=== PATIENT | female | born 1945 | race Caucasian/White ===

== ENCOUNTER → 2016-12-31 | Outpatient (CLI) | payer MEDICARE, MEDICAID ==
[~2016-12-31] MED LIST: CARI250T8 OR; CLON0.1T14 OR; FOLIPOW28; HYDR7.5T OR; LISIPOW; PRED5PAK8 OR; PREMARIN; ROSU10TA16 OR; VEN75XRT OR
[2016-12-31 11:06] LABS: Basophils # (auto) 0.1 uL; Basophils % (auto) 0.8 % (0.0-2.0); DEFINITIVE VIEW TRANSMISSION; Eosinophils # (auto) 0.2 uL; Hematocrit 41.6 % (36.0-46.0); Hemoglobin 14.1 g/dL (12.2-16.2); Lymphocytes % (auto) 29.2 % (10.0-50.0); Mean Corpuscular Hemoglobin 34.8 pg (28.0-32.0); Mean Corpuscular Volume 102.6 fL (80.0-100.0); Mean Platelet Volume 7.7 fL (7.4-10.4); Monocytes # (auto) 0.6 uL; Monocytes % (auto) 9.4 % (0.0-12.0); Neutrophils # (auto) 3.9 uL; Neutrophils % (auto) 57.6 % (37.0-80.0); Platelet Count (auto) 262 10^3/uL (140-450); White Blood Cell 6.8 10^3/uL (4.4-10.8)
[2016-12-31 11:39] LABS: Albumin 3.6 g/dL (3.4-5.0); Bilirubin, Total 0.4 mg/dL (0.2-1.0); Potassium 4.6 mmol/L (3.5-5.1); Total Protein 7.9 g/dL (6.4-8.2)
== END | disposition home or self-care (01) ==
LOC: LAB 10:20
DX: M25.50 Pain in unspecified joint (principal); M06.9 Rheumatoid arthritis, unspecified; I10 Essential (primary) hypertension; Z79.899 Other long term (current) drug therapy; D64.9 Anemia, unspecified
CPT/HCPCS: 36415; 80053; 85025; 85652; 86141

== ENCOUNTER 2018-05-25 16:55 | Inpatient (IN) | payer MEDICARE, MEDICAID ==
[~2018-05-25] VITALS: Ht 154.9 cm; Wt 62.4 kg
[~2018-05-25 16:55] MED LIST changes: +CARI250T OR; -CARI250T8 OR; +CATAPRESS; +ESTR1TAB5; +GABA600T; +HYDR7.5T; +OXYCONTIN 40 MG; +PREG225C; +PSEU60TA26; +ROPI0.5T18; +ROSU10TA16; +VENL75TA
[2018-05-25] MEDS ORDERED: SODIUM CHLORIDE 0.9% 1,000 ML IVB ONE (17:57)
[2018-05-25 18:53] LABS: Basophils # (auto) 0.1 uL; Basophils % (auto) 0.8 % (0.0-2.0); Eosinophils # (auto) 0.1 uL; Eosinophils % (auto) 0.6 % (0.0-7.0); Hematocrit 41.7 % (36.0-46.0); Hemoglobin 14.7 g/dL (12.2-16.2); Lymphocytes % (auto) 10.6 % (10.0-50.0); Mean Corpuscular Hemoglobin 33.1 pg (28.0-32.0); Mean Corpuscular Hgb Conc. 35.1 g/dL (32.0-36.0); Mean Corpuscular Volume 94.3 fL (80.0-100.0); Monocytes # (auto) 0.9 uL; Monocytes % (auto) 9.8 % (0.0-12.0); Neutrophils # (auto) 7.1 uL; Neutrophils % (auto) 78.2 % (37.0-80.0); Nucleated Red Blood Cells % 0.1 %; Platelet Count (auto) 227 10^3/uL (140-450); Red Blood Cells 4.42 10^6/uL (4.0-5.20); Red Cell Distribution Width 13.2 % (11.8-14.3); White Blood Cell 9.1 10^3/uL (4.4-10.8)
[2018-05-25 19:09] LABS: Partial Thromboplastin Time 26.1 sec (23.78-33.04); Prothrombin Time 10.7 sec (9.27-12.13)
[2018-05-25 19:16] LABS: Albumin 2.7 g/dL (3.4-5.0); BUN/Creatinine Ratio 12.3; Calcium 7.4 mg/dL (8.5-10.1); Magnesium 1.6 mg/dL (1.6-2.6)
[2018-05-25 19:20] LABS: Bilirubin, Total 0.3 mg/dL (0.2-1.0); Total Protein 6.4 g/dL (6.4-8.2)
[2018-05-25 19:23] LABS: Potassium 2.4 mmol/L (3.5-5.1)
[2018-05-25] MEDS ORDERED: ASPirin-EC 81 mg tab PO ONE (20:00)
[2018-05-25] MEDS ORDERED: POTASSIUM CHL 20 Meq TABLET PO ONE ×2 (20:00)
[2018-05-25] MEDS ORDERED: TEMAZEPAM 15 MG CAP PO PRN (21:00)
[2018-05-25] MEDS ORDERED: POTASSIUM CHL 20MEQ/100ML 100 ML IV ONE (21:00)
[2018-05-25] MEDS ORDERED: LORazepam 0.5 MG TAB PO PRN (21:00)
[2018-05-25 22:38] LABS: Urine Bacteria NONE SEEN /hpf (None Seen); Urine Blood TRACE /uL (Negative); Urine Mucus FEW (None Seen); Urine Specific Gravity 1.005 (1.001-1.035); Urine WBC 1 /hpf (0 - 5)
[2018-05-26] VITALS (8 sets, daily range): BP systolic 105–182; BP diastolic 53–109
[2018-05-26] MEDS ORDERED: SODIUM CHLORIDE 0.9% 1,000 ML IV SCH (00:45)
[2018-05-26] MEDS ORDERED: METOPROLOL TARTRATE 25 MG TAB PO ONE (03:15)
[2018-05-26] MEDS: PROMETHAZINE HCL 25 MG/ML 1ML IV PRN ×2 (03:57→20:38)
[2018-05-26] MEDS: HYDROcodone-ACET 5/325MG TAB PO PRN ×2 (05:40→12:47)
[2018-05-26] MEDS: MORPHINE SULF INJ 2 MG/ML SYRINGE 1ML IV PRN ×2 (06:41→20:38)
[2018-05-26] MEDS ORDERED: MORP15TA PO (08:02)
[2018-05-26] MEDS: METOPROLOL TARTRATE 25 MG TAB PO SCH ×2 (08:45→21:52)
[2018-05-26] MEDS: ASPirin-EC 81 mg tab PO SCH (08:46)
[2018-05-26 09:08] LABS: BUN/Creatinine Ratio 14.5; Calcium 8.1 mg/dL (8.5-10.1)
[2018-05-26 09:11] LABS: Potassium 2.6 mmol/L (3.5-5.1)
[2018-05-26 09:35] LABS: Basophils # (auto) 0.1 uL; Eosinophils # (auto) 0.1 uL; Eosinophils % (auto) 0.7 % (0.0-7.0); Hemoglobin 16.4 g/dL (12.2-16.2); Lymphocytes # (auto) 1.4 uL; Lymphocytes % (auto) 12.7 % (10.0-50.0); Mean Corpuscular Hemoglobin 32.7 pg (28.0-32.0); Mean Corpuscular Volume 93.6 fL (80.0-100.0); Monocytes % (auto) 9.6 % (0.0-12.0); Neutrophils # (auto) 8.3 uL; Nucleated Red Blood Cells % 0.1 %; Platelet Count (auto) 258 10^3/uL (140-450); Red Blood Cells 5.02 10^6/uL (4.0-5.20); White Blood Cell 10.9 10^3/uL (4.4-10.8)
[2018-05-26 09:39] LABS: Cholesterol 250 mg/dL (< 200); HDL Cholesterol 74 mg/dL (40-59); LDL Cholesterol 160 mg/dL (< 100); Triglycerides 111 mg/dL (< 150)
[2018-05-26] MEDS ORDERED: POTASSIUM CHL 20 Meq TABLET PO ONE (10:45)
[2018-05-26] MEDS: SPIRONOLACTONE 25 MG TAB PO SCH (14:02)
[2018-05-26] MEDS ORDERED: MAGNESIUM SULFATE 1GM/100ML 100 ML IV ONE (15:00)
[2018-05-26] MEDS ORDERED: LORazepam 2MG/ML-1ML VIAL IV PRN (17:45)
[2018-05-26] MEDS: MORPHINE SULF 15mg ER tab PO SCH (18:41)
[2018-05-26] MEDS ORDERED: hydrALAZINE HCL 20 MG/ML VL IV ONE (21:45)
[2018-05-26] MEDS: ATORVASTATIN 20 MG TAB PO SCH (21:51)
[2018-05-27] MEDS ORDERED: LABETALOL HCL 5 MG/ML ML 20ML VIAL IV ONE (00:15)
[2018-05-27] MEDS: MORPHINE SULF 15mg ER tab PO SCH ×3 (02:15→11:36)
[2018-05-27] MEDS: PROMETHAZINE HCL 25 MG/ML 1ML IV PRN (03:25)
[2018-05-27] MEDS: MORPHINE SULF INJ 2 MG/ML SYRINGE 1ML IV PRN (03:25)
[2018-05-27 05:00] VITALS: BP 154/99
[2018-05-27 07:11] LABS: Albumin 3.1 g/dL (3.4-5.0); Anion Gap 14 (5-15); Blood Urea Nitrogen 17 mg/dL (7-18); Calcium 8.6 mg/dL (8.5-10.1); Carbon Dioxide 24 mmol/L (21-32); Chloride 94 mmol/L (98-107); Glucose 113 mg/dL (74-106); Magnesium 1.9 mg/dL (1.6-2.6); Sodium 132 mmol/L (136-145)
[2018-05-27 07:13] LABS: Alanine Aminotransferase 15 U/L (13-56); Aspartate Aminotransferase 27 U/L (15-37); GFR African American 84 mL/min; GFR Non-African American 69 mL/min
[2018-05-27 07:15] LABS: Alkaline Phosphatase 103 U/L (45-117); Bilirubin, Total 0.6 mg/dL (0.2-1.0); Total Protein 8.3 g/dL (6.4-8.2)
[2018-05-27 07:20] LABS: Potassium 2.5 mmol/L (3.5-5.1)
[2018-05-27 07:36] LABS: Basophils # (auto) 0.1 uL; Eosinophils # (auto) 0 uL; Lymphocytes # (auto) 1.5 uL; Mean Corpuscular Volume 93.7 fL (80.0-100.0); Monocytes % (auto) 10.6 % (0.0-12.0); Red Cell Distribution Width 13.2 % (11.8-14.3)
[2018-05-27 07:37] LABS: Basophils % (auto) 1.1 % (0.0-2.0); Eosinophils % (auto) 0.4 % (0.0-7.0); Hematocrit 50.7 % (36.0-46.0); Hemoglobin 18.2 g/dL (12.2-16.2); Lymphocytes % (auto) 14.1 % (10.0-50.0); Mean Corpuscular Hemoglobin 33.5 pg (28.0-32.0); Mean Corpuscular Hgb Conc. 35.8 g/dL (32.0-36.0); Monocytes # (auto) 1.1 uL; Neutrophils % (auto) 73.8 % (37.0-80.0); Nucleated Red Blood Cells % 0.2 %; Platelet Count (auto) 307 10^3/uL (140-450); Red Blood Cells 5.41 10^6/uL (4.0-5.20); White Blood Cell 10.9 10^3/uL (4.4-10.8)
[2018-05-27] MEDS ORDERED: POTASSIUM CHL 20 Meq TABLET PO ONE (08:00)
[2018-05-27 08:40] VITALS: BP 152/85
[2018-05-27] MEDS ORDERED: GIVE UN DILUTED IV ONE (09:00)
[2018-05-27] MEDS ORDERED: ADENOSINE IV ONE (09:00)
[2018-05-27] MEDS: SPIRONOLACTONE 25 MG TAB PO SCH (09:47)
[2018-05-27] MEDS: ASPirin-EC 81 mg tab PO SCH (09:47)
[2018-05-27] MEDS: METOPROLOL TARTRATE 25 MG TAB PO SCH ×2 (09:47→22:00)
[2018-05-27] MEDS ORDERED: POTASSIUM CHLORIDE 40 MEQ in SOD CHL 0.45% 1,000 ML IV ONE (11:30)
[2018-05-27] MEDS: POTASSIUM CHL 20MEQ/100ML 100 ML IV SCH ×2 (11:36→15:19)
[2018-05-27] MEDS ORDERED: MAGNESIUM SULFATE 1GM/100ML 100 ML IV ONE (12:15)
[2018-05-27] MEDS ORDERED: POTASSIUM EFFERVESENT TAB 25 MEQ PO SCH (13:00)
[2018-05-27] MEDS ORDERED: HALOPERIDOL LACTATE 5 MG/ML INJ VIAL IM PRN (17:30)
[2018-05-27] MEDS: ATORVASTATIN 20 MG TAB PO SCH (22:00)
[2018-05-27] MEDS ORDERED: diphenhdrAMINE HCL 50 MG/1 ML VL IV ONE (22:25)
[2018-05-28] MEDS: MORPHINE SULF 15mg ER tab PO SCH ×2 (02:09→10:15)
[2018-05-28 07:19] LABS: Calcium 8.8 mg/dL (8.5-10.1); Magnesium 2.3 mg/dL (1.6-2.6)
[2018-05-28 07:22] LABS: BUN/Creatinine Ratio 19.5
[2018-05-28 07:33] LABS: Basophils # (auto) 0 uL; Basophils % (auto) 0.1 % (0.0-2.0); Eosinophils # (auto) 0 uL; Hematocrit 53.2 % (36.0-46.0); Hemoglobin 18.6 g/dL (12.2-16.2); Lymphocytes # (auto) 0.8 uL; Lymphocytes % (auto) 5.2 % (10.0-50.0); Mean Corpuscular Hemoglobin 32.9 pg (28.0-32.0); Mean Corpuscular Hgb Conc. 35.1 g/dL (32.0-36.0); Mean Corpuscular Volume 93.9 fL (80.0-100.0); Monocytes # (auto) 1.3 uL; Monocytes % (auto) 8.5 % (0.0-12.0); Neutrophils # (auto) 13.1 uL; Neutrophils % (auto) 86.2 % (37.0-80.0); Nucleated Red Blood Cells % 0.2 %; Platelet Count (auto) 253 10^3/uL (140-450); Red Blood Cells 5.66 10^6/uL (4.0-5.20); Red Cell Distribution Width 13.5 % (11.8-14.3); White Blood Cell 15.2 10^3/uL (4.4-10.8)
[2018-05-28 07:47] LABS: Potassium 2.9 mmol/L (3.5-5.1)
[2018-05-28] MEDS ORDERED: POTASSIUM CHL 20 Meq TABLET PO ONE (09:00)
[2018-05-28] MEDS ORDERED: POTASSIUM CHL 20MEQ/100ML 100 ML IV ONE ×2 (09:00→12:15)
[2018-05-28] MEDS ORDERED: POTASSIUM CHLORIDE 40 MEQ in SOD CHL 0.45% 1,000 ML IV SCH ×2 (09:15→14:15)
[2018-05-28] MEDS: SPIRONOLACTONE 25 MG TAB PO SCH (10:00)
[2018-05-28] MEDS: ASPirin-EC 81 mg tab PO SCH (10:00)
[2018-05-28] MEDS: METOPROLOL TARTRATE 25 MG TAB PO SCH ×3 (10:00→22:00)
[2018-05-28] MEDS ORDERED: PANTOPRAZOLE 40 MG/10 ML VIAL IV ONE (12:00)
[2018-05-28] MEDS ORDERED: ENOXAPARIN SOD 30 MG/0.3 ML SYRINGE SC ONE (12:09)
[2018-05-28] MEDS: PIPERACILLIN-TAZOB 3.375GM 100 ML IV SCH ×3 (12:24→23:10)
[2018-05-28] MEDS: LABETALOL HCL 5 MG/ML ML 20ML VIAL IV PRN (14:33)
[2018-05-28] MEDS: hydrALAZINE HCL 20 MG/ML VL IV PRN (17:23)
[2018-05-28 17:47] VITALS: BP 129/55
[2018-05-28] MEDS: SOD CHL 0.9%/ KCL 40MEQ 1,000 ML IV SCH (17:57)
[2018-05-28 20:00] VITALS: BP 100/64
[2018-05-28] MEDS: PANTOPRAZOLE 40 MG/10 ML VIAL IV SCH ×2 (21:45→22:00)
[2018-05-28] MEDS: ATORVASTATIN 20 MG TAB PO SCH (21:46)
[2018-05-29] VITALS (26 sets, daily range): BP systolic 121–194; BP diastolic 47–129
[2018-05-29 05:33] LABS: Basophils # (auto) 0.1 uL; Basophils % (auto) 0.4 % (0.0-2.0); Eosinophils # (auto) 0 uL; Lymphocytes # (auto) 0.9 uL; Nucleated Red Blood Cells % 0.3 %
[2018-05-29 05:35] LABS: Hematocrit 50.7 % (36.0-46.0); Lymphocytes % (auto) 4.8 % (10.0-50.0); Mean Corpuscular Hemoglobin 33.2 pg (28.0-32.0); Mean Corpuscular Hgb Conc. 35.5 g/dL (32.0-36.0); Mean Corpuscular Volume 93.6 fL (80.0-100.0); Monocytes % (auto) 10.3 % (0.0-12.0); Neutrophils # (auto) 16.5 uL; Neutrophils % (auto) 84.5 % (37.0-80.0); Platelet Count (auto) 262 10^3/uL (140-450); Red Blood Cells 5.41 10^6/uL (4.0-5.20); Red Cell Distribution Width 13.3 % (11.8-14.3); White Blood Cell 19.6 10^3/uL (4.4-10.8)
[2018-05-29 05:52] LABS: Lactic Acid w/Reflex 2.3 mmol/L (0.4-2.0)
[2018-05-29] MEDS: PIPERACILLIN-TAZOB 3.375GM 100 ML IV SCH ×3 (05:57→18:00)
[2018-05-29 06:21] LABS: Albumin 2.8 g/dL (3.4-5.0); BUN/Creatinine Ratio 23.2; Calcium 8.4 mg/dL (8.5-10.1); Magnesium 2.6 mg/dL (1.6-2.6); Potassium 3.2 mmol/L (3.5-5.1); Total Protein 7.6 g/dL (6.4-8.2)
[2018-05-29] MEDS ORDERED: ADENOSINE 47 MG in GIVE UN-DILUTED 0 ML IV ONE (08:30)
[2018-05-29] MEDS: SPIRONOLACTONE 25 MG TAB PO SCH (09:27)
[2018-05-29] MEDS: ASPirin-EC 81 mg tab PO SCH (09:27)
[2018-05-29] MEDS: METOPROLOL TARTRATE 25 MG TAB PO SCH (09:28)
[2018-05-29] MEDS: ENOXAPARIN SOD 30 MG/0.3 ML SYRINGE SC SCH ×2 (09:28→09:39)
[2018-05-29] MEDS: PANTOPRAZOLE 40 MG/10 ML VIAL IV SCH ×2 (09:38→21:41)
[2018-05-29] MEDS: hydrALAZINE HCL 20 MG/ML VL IV PRN (12:05)
[2018-05-29] MEDS ORDERED: LORazepam 2MG/ML-1ML VIAL IV ONE (14:00)
[2018-05-29] MEDS ORDERED: ENOXAPARIN SOD 30 MG/0.3 ML SYRINGE SC ONE (14:30)
[2018-05-29] MEDS: SOD CHL 0.9%/ KCL 40MEQ 1,000 ML IV SCH ×2 (16:09→20:52)
[2018-05-29] MEDS ORDERED: CLOPIDOGREL BISULFATE 75 MG TAB PO ONE (18:15)
[2018-05-29 19:01] LABS: BUN/Creatinine Ratio 21.9; Calcium 8.6 mg/dL (8.5-10.1); Potassium 4.1 mmol/L (3.5-5.1)
[2018-05-29 19:03] LABS: Creatinine, Urine 76 mg/dL (30.0-125.0); Sodium Urine 19 mmol/L (40-220)
[2018-05-29 19:08] LABS: Alcohol, Urine < 3.0 mg/dL (0-5); Amphetamine Screen, Urine NEGATIVE (NEGATIVE); Barbiturate Scree,Urine NEGATIVE (NEGATIVE); Benzodiazephine Screen, Urine NEGATIVE (NEGATIVE); Cannabinoid Screen, Urine NEGATIVE (NEGATIVE); Cocaine Screen, Urine NEGATIVE (NEGATIVE); Opiate Scree,Urine NEGATIVE (NEGATIVE); Phencyclidine Screen, Urine NEGATIVE (NEGATIVE)
[2018-05-29] MEDS ORDERED: METOPROLOL TARTRATE 1MG/1ML-5ML VIAL IV ONE ×2 (19:20→19:30)
[2018-05-29] MEDS: ACETAMINOPHEN 500 MG TAB PO PRN (19:25)
[2018-05-29] MEDS ORDERED: NICARDIPINE 25MG/250ML BAG KIT 250 ML IV ONE (19:48)
[2018-05-29] MEDS: NICARDIPINE 25MG/250ML BAG KIT 250 ML IV SCH (20:02)
[2018-05-29] MEDS: LINEZOLID 600MG/300ML 300 ML IV SCH (21:41)
[2018-05-29] MEDS: ATORVASTATIN 20 MG TAB PO SCH (21:41)
[2018-05-29] MEDS: MORPHINE SULF INJ 2 MG/ML SYRINGE 1ML IV PRN (21:42)
[2018-05-30] VITALS (95 sets, daily range): BP systolic 117–181; BP diastolic 36–105
[2018-05-30] MEDS: PIPERACILLIN-TAZOB 3.375GM 100 ML IV SCH ×2 (00:01→05:42)
[2018-05-30] MEDS: METOPROLOL TARTRATE 1MG/1ML-5ML VIAL IV SCH ×2 (00:02→05:42)
[2018-05-30] MEDS: D5W/SOD CHL 0.9%/KCL 40MEQ 1,000 ML IV SCH ×2 (01:00→10:17)
[2018-05-30] MEDS: NICARDIPINE 25MG/250ML BAG KIT 250 ML IV SCH ×5 (02:05→20:40)
[2018-05-30] MEDS: MORPHINE SULF INJ 2 MG/ML SYRINGE 1ML IV PRN (04:34)
[2018-05-30 04:55] LABS: Albumin 2.3 g/dL (3.4-5.0); Anion Gap 12 (5-15); Aspartate Aminotransferase 47 U/L (15-37); BUN/Creatinine Ratio 21.8; Blood Urea Nitrogen 56 mg/dL (7-18); Calcium 7.5 mg/dL (8.5-10.1); Carbon Dioxide 21 mmol/L (21-32); Chloride 107 mmol/L (98-107); GFR African American 23 mL/min; GFR Non-African American 19 mL/min; Glucose 132 mg/dL (74-106); Magnesium 2.4 mg/dL (1.6-2.6); Potassium 3.2 mmol/L (3.5-5.1); Sodium 140 mmol/L (136-145)
[2018-05-30 05:04] LABS: Alanine Aminotransferase 20 U/L (13-56); Alkaline Phosphatase 71 U/L (45-117); Bilirubin, Total 0.6 mg/dL (0.2-1.0); Total Protein 6.7 g/dL (6.4-8.2)
[2018-05-30 05:05] LABS: Basophils # (auto) 0 uL; Basophils % (auto) 0.1 % (0.0-2.0); Eosinophils # (auto) 0 uL; Hemoglobin 15.4 g/dL (12.2-16.2); Lymphocytes % (auto) 5.2 % (10.0-50.0); Mean Corpuscular Hgb Conc. 34.2 g/dL (32.0-36.0); Mean Corpuscular Volume 93.8 fL (80.0-100.0); Monocytes # (auto) 1.6 uL; Monocytes % (auto) 8.2 % (0.0-12.0); Neutrophils # (auto) 16.5 uL; Neutrophils % (auto) 86.5 % (37.0-80.0); Nucleated Red Blood Cells % 0.1 %; Platelet Count (auto) 193 10^3/uL (140-450); Red Cell Distribution Width 13.6 % (11.8-14.3); White Blood Cell 19.1 10^3/uL (4.4-10.8)
[2018-05-30] MEDS ORDERED: D5W/SOD CHL 0.45%/KCL 40MEQ 1,000 ML IV SCH (09:15)
[2018-05-30] MEDS: LINEZOLID 600MG/300ML 300 ML IV SCH ×2 (10:17→22:41)
[2018-05-30] MEDS: ENOXAPARIN SOD 60 MG/0.6 ML SYRINGE SC SCH (10:18)
[2018-05-30] MEDS: CLOPIDOGREL BISULFATE 75 MG TAB PO SCH (10:18)
[2018-05-30] MEDS: PANTOPRAZOLE 40 MG/10 ML VIAL IV SCH ×2 (10:42→22:42)
[2018-05-30] MEDS ORDERED: METOPROLOL TARTRATE 1MG/1ML-5ML VIAL IV PRN (11:00)
[2018-05-30] MEDS: METOPROLOL TARTRATE 25 MG TAB PO SCH ×2 (11:15→22:42)
[2018-05-30] MEDS: PIPERACILLIN-TAZOB 2.25GM 50 ML IV SCH ×2 (12:34→17:55)
[2018-05-30 18:00] LABS: BUN/Creatinine Ratio 21.5; Calcium 7.5 mg/dL (8.5-10.1); Potassium 3.2 mmol/L (3.5-5.1)
[2018-05-30] MEDS: ATORVASTATIN 20 MG TAB PO SCH (22:41)
[2018-05-31] VITALS (74 sets, daily range): BP systolic 134–178; BP diastolic 37–106
[2018-05-31] MEDS: NICARDIPINE 25MG/250ML BAG KIT 250 ML IV SCH ×5 (01:40→21:40)
[2018-05-31 04:45] LABS: Basophils # (auto) 0 uL; Basophils % (auto) 0.1 % (0.0-2.0); Eosinophils # (auto) 0 uL; Hematocrit 39.1 % (36.0-46.0); Hemoglobin 13.4 g/dL (12.2-16.2); Lymphocytes # (auto) 0.8 uL; Lymphocytes % (auto) 6.3 % (10.0-50.0); Mean Corpuscular Hemoglobin 32.5 pg (28.0-32.0); Mean Corpuscular Hgb Conc. 34.3 g/dL (32.0-36.0); Mean Corpuscular Volume 94.5 fL (80.0-100.0); Monocytes # (auto) 1.1 uL; Monocytes % (auto) 8.6 % (0.0-12.0); Neutrophils # (auto) 11.3 uL; Platelet Count (auto) 182 10^3/uL (140-450); Red Blood Cells 4.13 10^6/uL (4.0-5.20); Red Cell Distribution Width 13.4 % (11.8-14.3); White Blood Cell 13.3 10^3/uL (4.4-10.8)
[2018-05-31 05:02] LABS: Albumin 2.3 g/dL (3.4-5.0); Bilirubin, Total 0.5 mg/dL (0.2-1.0); Calcium 7.4 mg/dL (8.5-10.1); Total Protein 6.1 g/dL (6.4-8.2)
[2018-05-31 05:28] LABS: Potassium 2.9 mmol/L (3.5-5.1)
[2018-05-31] MEDS: PIPERACILLIN-TAZOB 2.25GM 50 ML IV SCH ×4 (06:00→17:46)
[2018-05-31] MEDS ORDERED: POTASSIUM EFFERVESENT TAB 25 MEQ GT ONE ×2 (07:45→11:45)
[2018-05-31] MEDS: PANTOPRAZOLE 40 MG/10 ML VIAL IV SCH ×2 (09:27→22:47)
[2018-05-31] MEDS: CLOPIDOGREL BISULFATE 75 MG TAB PO SCH (09:27)
[2018-05-31] MEDS: ENOXAPARIN SOD 60 MG/0.6 ML SYRINGE SC SCH (09:28)
[2018-05-31] MEDS: METOPROLOL TARTRATE 25 MG TAB PO SCH ×2 (09:28→22:48)
[2018-05-31] MEDS: LINEZOLID 600MG/300ML 300 ML IV SCH ×2 (09:28→22:47)
[2018-05-31] MEDS: D5W/SOD CHL 0.9%/KCL 40MEQ 1,000 ML IV SCH (13:49)
[2018-05-31] MEDS: ACETAMINOPHEN 500 MG TAB PO PRN ×2 (15:40→22:50)
[2018-05-31] MEDS: LABETALOL HCL 5 MG/ML ML 20ML VIAL IV PRN (21:08)
[2018-05-31] MEDS: ATORVASTATIN 20 MG TAB PO SCH (22:48)
[2018-05-31] MEDS: LISINOPRIL 10 MG TAB PO SCH (22:48)
[2018-06-01] VITALS (68 sets, daily range): BP systolic 94–180; BP diastolic 35–100
[2018-06-01] MEDS: PIPERACILLIN-TAZOB 2.25GM 50 ML IV SCH ×4 (00:14→17:49)
[2018-06-01] MEDS: D5W/SOD CHL 0.9%/KCL 40MEQ 1,000 ML IV SCH ×2 (01:15→17:48)
[2018-06-01] MEDS: hydrALAZINE HCL 20 MG/ML VL IV PRN ×2 (02:25→09:54)
[2018-06-01] MEDS: MORPHINE SULF INJ 2 MG/ML SYRINGE 1ML IV PRN ×3 (02:30→20:41)
[2018-06-01] MEDS: NICARDIPINE 25MG/250ML BAG KIT 250 ML IV SCH ×2 (02:40→07:40)
[2018-06-01 03:48] LABS: Basophils # (auto) 0 uL; Basophils % (auto) 0.2 % (0.0-2.0); Eosinophils # (auto) 0 uL; Eosinophils % (auto) 0.5 % (0.0-7.0); Hematocrit 40.7 % (36.0-46.0); Hemoglobin 14.1 g/dL (12.2-16.2); Lymphocytes # (auto) 1.1 uL; Lymphocytes % (auto) 11.5 % (10.0-50.0); Mean Corpuscular Hemoglobin 32.6 pg (28.0-32.0); Mean Corpuscular Hgb Conc. 34.5 g/dL (32.0-36.0); Mean Corpuscular Volume 94.5 fL (80.0-100.0); Monocytes # (auto) 0.9 uL; Neutrophils # (auto) 7.2 uL; Neutrophils % (auto) 77.8 % (37.0-80.0); Platelet Count (auto) 199 10^3/uL (140-450); Red Blood Cells 4.31 10^6/uL (4.0-5.20); Red Cell Distribution Width 13.5 % (11.8-14.3); White Blood Cell 9.3 10^3/uL (4.4-10.8)
[2018-06-01 04:17] LABS: Albumin 2.3 g/dL (3.4-5.0); BUN/Creatinine Ratio 13.6; Bilirubin, Total 0.4 mg/dL (0.2-1.0); Calcium 7.4 mg/dL (8.5-10.1); Potassium 3.2 mmol/L (3.5-5.1); Total Protein 6.2 g/dL (6.4-8.2)
[2018-06-01] MEDS ORDERED: POTASSIUM EFFERVESENT TAB 25 MEQ GT ONE ×2 (06:00→09:45)
[2018-06-01] MEDS: ENOXAPARIN SOD 60 MG/0.6 ML SYRINGE SC SCH (09:55)
[2018-06-01] MEDS: METOPROLOL TARTRATE 25 MG TAB PO SCH ×2 (09:55→21:33)
[2018-06-01] MEDS: PANTOPRAZOLE 40 MG/10 ML VIAL IV SCH ×2 (09:55→21:33)
[2018-06-01] MEDS: LISINOPRIL 10 MG TAB PO SCH ×2 (09:55→21:34)
[2018-06-01] MEDS: LINEZOLID 600MG/300ML 300 ML IV SCH ×2 (09:55→21:33)
[2018-06-01] MEDS: CLOPIDOGREL BISULFATE 75 MG TAB PO SCH (09:56)
[2018-06-01 16:31] LABS: Calcium 7.3 mg/dL (8.5-10.1)
[2018-06-01] MEDS: ATORVASTATIN 20 MG TAB PO SCH (21:33)
[2018-06-02] VITALS (56 sets, daily range): BP systolic 101–174; BP diastolic 35–110
[2018-06-02] MEDS: PIPERACILLIN-TAZOB 2.25GM 50 ML IV SCH ×4 (00:18→17:49)
[2018-06-02] MEDS: D5W/SOD CHL 0.9%/KCL 40MEQ 1,000 ML IV SCH (04:14)
[2018-06-02 04:20] LABS: Basophils # (auto) 0 uL; Basophils % (auto) 0.2 % (0.0-2.0); Eosinophils # (auto) 0.2 uL; Eosinophils % (auto) 2.5 % (0.0-7.0); Hematocrit 38.7 % (36.0-46.0); Hemoglobin 13.1 g/dL (12.2-16.2); Lymphocytes # (auto) 1.6 uL; Lymphocytes % (auto) 18.1 % (10.0-50.0); Mean Corpuscular Hemoglobin 33.1 pg (28.0-32.0); Mean Corpuscular Hgb Conc. 33.8 g/dL (32.0-36.0); Mean Corpuscular Volume 98.1 fL (80.0-100.0); Monocytes # (auto) 0.9 uL; Monocytes % (auto) 10.3 % (0.0-12.0); Neutrophils # (auto) 6.1 uL; Neutrophils % (auto) 68.9 % (37.0-80.0); Platelet Count (auto) 183 10^3/uL (140-450); Red Blood Cells 3.94 10^6/uL (4.0-5.20); White Blood Cell 8.8 10^3/uL (4.4-10.8)
[2018-06-02 04:47] LABS: Albumin 1.9 g/dL (3.4-5.0); BUN/Creatinine Ratio 11.4; Bilirubin, Total 0.3 mg/dL (0.2-1.0); Calcium 6.7 mg/dL (8.5-10.1); Magnesium 1.5 mg/dL (1.6-2.6); Potassium 4.2 mmol/L (3.5-5.1); Total Protein 5.3 g/dL (6.4-8.2)
[2018-06-02] MEDS: ACETAMINOPHEN 500 MG TAB PO PRN ×2 (08:41→16:28)
[2018-06-02] MEDS ORDERED: FLORASTOR (S. BOULARDII) 250 MG CAP PO ONE (10:34)
[2018-06-02] MEDS: PANTOPRAZOLE 40 MG/10 ML VIAL IV SCH (10:35)
[2018-06-02] MEDS: CLOPIDOGREL BISULFATE 75 MG TAB PO SCH (10:36)
[2018-06-02] MEDS: METOPROLOL TARTRATE 25 MG TAB PO SCH ×2 (10:36→21:46)
[2018-06-02] MEDS: LINEZOLID 600MG/300ML 300 ML IV SCH (10:36)
[2018-06-02] MEDS: ENOXAPARIN SOD 60 MG/0.6 ML SYRINGE SC SCH (10:37)
[2018-06-02] MEDS: LISINOPRIL 20 MG TAB PO SCH ×2 (10:37→21:46)
[2018-06-02] MEDS ORDERED: MAGNESIUM SULFATE 1GM/100ML 100 ML IV ONE (10:45)
[2018-06-02] MEDS: MORPHINE SULF INJ 2 MG/ML SYRINGE 1ML IV PRN (13:19)
[2018-06-02] MEDS: hydrALAZINE HCL 20 MG/ML VL IV PRN (18:06)
[2018-06-02] MEDS: ATORVASTATIN 20 MG TAB PO SCH (21:46)
[2018-06-03] VITALS (7 sets, daily range): BP systolic 130–173; BP diastolic 54–66
[2018-06-03] MEDS: PIPERACILLIN-TAZOB 2.25GM 50 ML IV SCH ×4 (00:31→18:05)
[2018-06-03] MEDS: MORPHINE SULF INJ 2 MG/ML SYRINGE 1ML IV PRN (00:35)
[2018-06-03] MEDS: hydrALAZINE HCL 20 MG/ML VL IV PRN (04:36)
[2018-06-03 06:04] LABS: Calcium 7.8 mg/dL (8.5-10.1); Magnesium 1.5 mg/dL (1.6-2.6); Potassium 4.3 mmol/L (3.5-5.1)
[2018-06-03 06:11] LABS: BUN/Creatinine Ratio 10.1
[2018-06-03] MEDS: PANTOPRAZOLE 40 MG/10 ML VIAL IV SCH (09:44)
[2018-06-03] MEDS: CLOPIDOGREL BISULFATE 75 MG TAB PO SCH (09:44)
[2018-06-03] MEDS: FLORASTOR (S. BOULARDII) 250 MG CAP PO SCH (09:48)
[2018-06-03] MEDS: LISINOPRIL 20 MG TAB PO SCH ×2 (09:48→23:13)
[2018-06-03] MEDS: ENOXAPARIN SOD 60 MG/0.6 ML SYRINGE SC SCH (09:49)
[2018-06-03] MEDS: METOPROLOL TARTRATE 25 MG TAB PO SCH ×2 (09:49→23:14)
[2018-06-03] MEDS: metroNIDAZOLE 500 MG TAB PO SCH ×2 (12:06→18:05)
[2018-06-03] MEDS: MAGNESIUM SULFATE 1GM/100ML 100 ML IV SCH ×2 (12:06→15:22)
[2018-06-03] MEDS: ATORVASTATIN 20 MG TAB PO SCH (23:11)
[2018-06-03] MEDS: SODIUM BICARBONATE 650 MG TAB PO SCH (23:11)
[2018-06-03] MEDS: ACETAMINOPHEN 500 MG TAB PO PRN (23:11)
[2018-06-04] VITALS: BP 129/67
[2018-06-04] MEDS: PIPERACILLIN-TAZOB 2.25GM 50 ML IV SCH ×5 (00:05→23:51)
[2018-06-04] MEDS: metroNIDAZOLE 500 MG TAB PO SCH ×2 (00:05→06:43)
[2018-06-04] MEDS: PROMETHAZINE HCL 25 MG/ML 1ML IV PRN (02:35)
[2018-06-04 04:00] VITALS: BP 153/86
[2018-06-04] MEDS: MORPHINE SULF INJ 2 MG/ML SYRINGE 1ML IV PRN (04:17)
[2018-06-04] MEDS: hydrALAZINE HCL 20 MG/ML VL IV PRN (04:58)
[2018-06-04 07:14] LABS: BUN/Creatinine Ratio 10.4; Calcium 8.4 mg/dL (8.5-10.1); Magnesium 2.5 mg/dL (1.6-2.6); Potassium 3.9 mmol/L (3.5-5.1)
[2018-06-04 08:00] VITALS: BP 107/62
[2018-06-04] MEDS ORDERED: ENOXAPARIN SOD 60 MG/0.6 ML SYRINGE SC SCH (10:00)
[2018-06-04] MEDS: SODIUM BICARBONATE 650 MG TAB PO SCH ×2 (11:23→22:04)
[2018-06-04] MEDS: FLORASTOR (S. BOULARDII) 250 MG CAP PO SCH (11:23)
[2018-06-04] MEDS: PANTOPRAZOLE 40 MG/10 ML VIAL IV SCH (11:23)
[2018-06-04] MEDS: CLOPIDOGREL BISULFATE 75 MG TAB PO SCH (11:28)
[2018-06-04] MEDS: METOPROLOL TARTRATE 25 MG TAB PO SCH ×2 (11:33→22:05)
[2018-06-04] MEDS: LISINOPRIL 20 MG TAB PO SCH ×2 (11:33→22:04)
[2018-06-04 11:49] VITALS: BP 134/56
[2018-06-04 15:30] VITALS: BP 134/93
[2018-06-04] MEDS: ACETAMINOPHEN 500 MG TAB PO PRN (18:04)
[2018-06-04] MEDS: Ensure Enlive Chocolate 8oz Bottle PO SCH (18:04)
[2018-06-04] MEDS: Pro-Stat SF 30ml Vanilla PO SCH (18:04)
[2018-06-04 22:03] VITALS: BP 138/70
[2018-06-04] MEDS: ATORVASTATIN 20 MG TAB PO SCH (22:05)
[2018-06-05] MEDS: ACETAMINOPHEN 500 MG TAB PO PRN (01:59)
[2018-06-05] MEDS: PIPERACILLIN-TAZOB 2.25GM 50 ML IV SCH (05:55)
[2018-06-05 05:59] LABS: Basophils # (auto) 0.1 uL; Basophils % (auto) 0.8 % (0.0-2.0); Eosinophils # (auto) 0.5 uL; Eosinophils % (auto) 5.7 % (0.0-7.0); Hematocrit 43.1 % (36.0-46.0); Hemoglobin 14.7 g/dL (12.2-16.2); Lymphocytes # (auto) 1.9 uL; Lymphocytes % (auto) 21.9 % (10.0-50.0); Mean Corpuscular Hemoglobin 33.2 pg (28.0-32.0); Mean Corpuscular Volume 97.5 fL (80.0-100.0); Monocytes # (auto) 1.1 uL; Monocytes % (auto) 12.2 % (0.0-12.0); Neutrophils # (auto) 5.1 uL; Neutrophils % (auto) 59.4 % (37.0-80.0); Nucleated Red Blood Cells % 0.1 %; Platelet Count (auto) 226 10^3/uL (140-450); Red Blood Cells 4.42 10^6/uL (4.0-5.20); Red Cell Distribution Width 13.5 % (11.8-14.3); White Blood Cell 8.6 10^3/uL (4.4-10.8)
[2018-06-05 06:00] VITALS: BP 140/77
[2018-06-05 06:19] LABS: BUN/Creatinine Ratio 10.4; Magnesium 2.2 mg/dL (1.6-2.6); Potassium 3.9 mmol/L (3.5-5.1)
[2018-06-05] MEDS: Pro-Stat SF 30ml Vanilla PO SCH ×2 (08:00→18:00)
[2018-06-05] MEDS: Ensure Enlive Chocolate 8oz Bottle PO SCH ×2 (08:35→18:00)
[2018-06-05] MEDS: METOPROLOL TARTRATE 25 MG TAB PO SCH (09:52)
[2018-06-05] MEDS: SODIUM BICARBONATE 650 MG TAB PO SCH (09:52)
[2018-06-05] MEDS: FLORASTOR (S. BOULARDII) 250 MG CAP PO SCH (09:52)
[2018-06-05] MEDS: PANTOPRAZOLE 40 MG/10 ML VIAL IV SCH (09:52)
[2018-06-05] MEDS: LISINOPRIL 20 MG TAB PO SCH (09:53)
[2018-06-05] MEDS: CLOPIDOGREL BISULFATE 75 MG TAB PO SCH (09:53)
[2018-06-05] MEDS ORDERED: ENOXAPARIN SOD 30 MG/0.3 ML SYRINGE SC SCH (10:00)
[2018-06-05] MEDS ORDERED: LISI-646 PO (13:04)
[2018-06-05] MEDS ORDERED: CLOP75TA28 PO (13:04)
[2018-06-05] MEDS ORDERED: ATOR20TA50 PO (13:04)
[2018-06-05] MEDS ORDERED: MET25T PO (13:04)
[2018-06-06] MEDS ORDERED: PANTOPRAZOLE 40 MG TAB PO SCH (10:00)
== END 2018-06-05 19:15 | DRG 190 ==
LOC: EDUNIT# 16:55 → EDBD 16:55 → ER 17:05 → TELE 17:06 → TELE-WESTW 05-26 02:17 → DOU IN ICU 05-28 18:02 → ICU WEST 05-29 14:41 → DOU IN ICU 06-02 22:36 → TELE-WESTW 06-04 15:32
PROVIDERS: ADMIT Nurse Practitioner Family; ATTEND Internal Medicine
DX: I21.A1 Myocardial infarction type 2 (principal); I63.30 Cerebral infarction due to thrombosis of unspecified cerebral artery; J69.0 Pneumonitis due to inhalation of food and vomit; N17.0 Acute kidney failure with tubular necrosis; A41.9 Sepsis, unspecified organism; G93.41 Metabolic encephalopathy; E87.0 Hyperosmolality and hypernatremia; D64.9 Anemia, unspecified; S00.83XA Contusion of other part of head, initial encounter; G62.9 Polyneuropathy, unspecified; E44.1 Mild protein-calorie malnutrition; J44.9 Chronic obstructive pulmonary disease, unspecified; E87.6 Hypokalemia; K57.30 Diverticulosis of large intestine without perforation or abscess without bleeding; I25.10 Atherosclerotic heart disease of native coronary artery without angina pectoris; N18.9 Chronic kidney disease, unspecified; I12.9 Hypertensive chronic kidney disease with stage 1 through stage 4 chronic kidney disease, or unspecified chronic kidney disease; E78.5 Hyperlipidemia, unspecified; F41.9 Anxiety disorder, unspecified; M19.90 Unspecified osteoarthritis, unspecified site; F32.9 Major depressive disorder, single episode, unspecified; I95.1 Orthostatic hypotension; I65.29 Occlusion and stenosis of unspecified carotid artery; F17.210 Nicotine dependence, cigarettes, uncomplicated; G81.94 Hemiplegia, unspecified affecting left nondominant side; G89.29 Other chronic pain; I65.21 Occlusion and stenosis of right carotid artery; I67.2 Cerebral atherosclerosis; I73.9 Peripheral vascular disease, unspecified; K42.9 Umbilical hernia without obstruction or gangrene; R29.6 Repeated falls; W19.XXXA Unspecified fall, initial encounter; Y92.009 Unspecified place in unspecified non-institutional (private) residence as the place of occurrence of the external cause; Z79.82 Long term (current) use of aspirin; Z79.899 Other long term (current) drug therapy; Z80.0 Family history of malignant neoplasm of digestive organs; Z90.710 Acquired absence of both cervix and uterus; Z95.5 Presence of coronary angioplasty implant and graft; Z88.6 Allergy status to analgesic agent; Z88.2 Allergy status to sulfonamides; Z68.26 Body mass index [BMI] 26.0-26.9, adult
CPT/HCPCS: 36415; 36600; 70450; 70551; 71045; 71250; 74176; 80048; 80053; 80061; 80307; 81001; 82088; 82570; 82805; 82962; 83605; 83735; 83880; 84132; 84244; 84300; 84484; 85025; 85610; 85730; 87040; 87081; 87086; 87493; 92610; 93005; 93306; 93886; 94761; 96361; 96365; 96366; 97110; 97530; A6257; C9113; J0153; J2543; J3480

== ENCOUNTER 2020-11-24 15:00 | Inpatient (IN) | payer MEDICARE, MEDICAID ==
[~2020-11-24] VITALS: Ht 144.8 cm; Wt 71.1 kg
[~2020-11-24 15:00] MED LIST changes: +ATOR20TA50 PO; -CARI250T OR; -CATAPRESS; -CLON0.1T14 OR; +CLOP75TA28 PO; -ESTR1TAB5; -FOLIPOW28; -GABA600T; -HYDR7.5T; -HYDR7.5T OR; +LISI20TA28 PO; -LISIPOW; +MET25T PO; +MORP15TA PO; -OXYCONTIN 40 MG; -PRED5PAK8 OR; -PREMARIN; -PSEU60TA26; -ROPI0.5T18; -ROSU10TA16; -ROSU10TA16 OR; -VEN75XRT OR; +VENL75CA3 OR; -VENL75TA
[2020-11-24] MEDS ORDERED: SODIUM CHLORIDE 0.9% 500 ML IV ONE (15:15)
[2020-11-24 16:44] LABS: Urine Bacteria NONE SEEN /hpf (None Seen); Urine Blood TRACE /uL (Negative); Urine Hyaline Cast FEW /lpf (0 - 2); Urine Specific Gravity 1.015 (1.001-1.035); Urine WBC 2 /hpf (0 - 5)
[2020-11-24 17:01] LABS: Basophils # (auto) 0.1 10 ^3/uL (0-0.2); Basophils % (auto) 0.6 % (0.0-2.0); Eosinophils # (auto) 0 10 ^3/uL (0-0.8); Eosinophils % (auto) 0.2 % (0.0-7.0); Hematocrit 38.7 % (36.0-46.0); Hemoglobin 13.2 g/dL (12.2-16.2); Lymphocytes # (auto) 0.6 10 ^3/uL (0.4-5.4); Lymphocytes % (auto) 6.2 % (10.0-50.0); Mean Corpuscular Hemoglobin 31.4 pg (28.0-32.0); Mean Corpuscular Hgb Conc. 34.1 g/dL (32.0-36.0); Monocytes # (auto) 0.6 10 ^3/uL (0-1.3); Monocytes % (auto) 6.2 % (0.0-12.0); Neutrophils # (auto) 8.2 10 ^3/uL (1.6-8.6); Neutrophils % (auto) 86.8 % (37.0-80.0); Red Cell Distribution Width 13.7 % (11.8-14.3); White Blood Cell 9.4 10^3/uL (4.4-10.8)
[2020-11-24] MEDS ORDERED: DOCUSATE SOD 100 MG CAP PO PRN (17:15)
[2020-11-24] MEDS ORDERED: MORPHINE SULFATE INJECTION 2 MG/ML SYRG IV PRN (17:15)
[2020-11-24] MEDS ORDERED: NITROGLYCERIN 0.4 MG SL TAB SL PRN (17:15)
[2020-11-24 17:18] LABS: Calcium 8.5 mg/dL (8.5-10.1); Magnesium 1.7 mg/dL (1.6-2.6); Potassium 3.4 mmol/L (3.5-5.1)
[2020-11-24 17:25] LABS: BUN/Creatinine Ratio 10.3; Bilirubin, Total 0.5 mg/dL (0.2-1.0); Total Protein 7.5 g/dL (6.4-8.2)
[2020-11-24] MEDS: MORPHINE SULFATE 4 MG/ML SYR/VIAL IV PRN (20:15)
[2020-11-24] MEDS: ONDANSETRON HCL 4 MG/2 ML VIAL IV PRN (20:15)
[2020-11-24] MEDS: FAMOTIDINE 20 MG TAB PO SCH (22:00)
[2020-11-24] MEDS: METOPROLOL TARTRATE 25 MG TAB PO SCH (22:00)
[2020-11-24] MEDS: LISINOPRIL 20 MG TAB PO SCH (22:00)
[2020-11-24] MEDS: ATORVASTATIN 20 MG TAB PO SCH (22:40)
[2020-11-24 22:46] VITALS: BP 160/50
[2020-11-24] MEDS: HYDROcodone-ACET 5/325MG TAB PO PRN (23:00)
[2020-11-25] VITALS (7 sets, daily range): BP systolic 131–176; BP diastolic 55–84
[2020-11-25] MEDS: ONDANSETRON HCL 4 MG/2 ML VIAL IV PRN ×2 (02:24→07:37)
[2020-11-25 03:40] LABS: Cholesterol 129 mg/dL (< 200); HDL Cholesterol 60 mg/dL (40-59); LDL Cholesterol 59 mg/dL (< 100); Triglycerides 82 mg/dL (< 150)
[2020-11-25] MEDS: VENLAFAXINE HCL 37.5mg XR cap PO SCH (05:38)
[2020-11-25 07:20] LABS: Basophils # (auto) 0.1 10 ^3/uL (0-0.2); Basophils % (auto) 1.2 % (0.0-2.0); Eosinophils # (auto) 0.2 10 ^3/uL (0-0.8); Eosinophils % (auto) 3.7 % (0.0-7.0); Hematocrit 35.4 % (36.0-46.0); Hemoglobin 12.1 g/dL (12.2-16.2); Mean Corpuscular Hemoglobin 31.2 pg (28.0-32.0); Mean Corpuscular Hgb Conc. 34.1 g/dL (32.0-36.0); Mean Corpuscular Volume 91.6 fL (80.0-100.0); Monocytes # (auto) 0.7 10 ^3/uL (0-1.3); Neutrophils # (auto) 3.5 10 ^3/uL (1.6-8.6); Neutrophils % (auto) 64.1 % (37.0-80.0); Nucleated Red Blood Cells % 0.1 %; Red Blood Cells 3.86 10^6/uL (4.0-5.20); Red Cell Distribution Width 13.4 % (11.8-14.3); White Blood Cell 5.5 10^3/uL (4.4-10.8)
[2020-11-25 07:43] LABS: Albumin 2.8 g/dL (3.4-5.0); Calcium 8.6 mg/dL (8.5-10.1); Potassium 3.3 mmol/L (3.5-5.1)
[2020-11-25 07:45] LABS: BUN/Creatinine Ratio 6.2
[2020-11-25 07:56] LABS: Bilirubin, Total 0.4 mg/dL (0.2-1.0); Total Protein 6.7 g/dL (6.4-8.2)
[2020-11-25] MEDS: LISINOPRIL 20 MG TAB PO SCH ×2 (09:58→21:07)
[2020-11-25] MEDS: METOPROLOL TARTRATE 25 MG TAB PO SCH ×2 (09:58→21:06)
[2020-11-25] MEDS: HYDROcodone-ACET 5/325MG TAB PO PRN ×2 (09:58→21:08)
[2020-11-25] MEDS: CLOPIDOGREL BISULFATE 75 MG TAB PO SCH (09:58)
[2020-11-25] MEDS ORDERED: ALUM & MAG HYDROX-SIMETH LIQ(MAALOX) 30 ML PO PRN (11:15)
[2020-11-25] MEDS: LABETALOL HCL 200 MG TAB PO PRN (17:08)
[2020-11-25] MEDS: ATORVASTATIN 20 MG TAB PO SCH (21:05)
[2020-11-25] MEDS: FAMOTIDINE 20 MG TAB PO SCH (21:07)
[2020-11-26 04:56] VITALS: BP 162/75
[2020-11-26] MEDS: VENLAFAXINE HCL 37.5mg XR cap PO SCH (05:32)
[2020-11-26] MEDS: METOPROLOL TARTRATE 25 MG TAB PO SCH ×2 (09:56→21:36)
[2020-11-26] MEDS: MORPHINE SULFATE 4 MG/ML SYR/VIAL IV PRN (09:57)
[2020-11-26] MEDS: CLOPIDOGREL BISULFATE 75 MG TAB PO SCH (09:57)
[2020-11-26] MEDS: LISINOPRIL 20 MG TAB PO SCH ×2 (09:57→21:37)
[2020-11-26 17:00] VITALS: BP 164/67
[2020-11-26] MEDS: LABETALOL HCL 200 MG TAB PO PRN (17:35)
[2020-11-26] MEDS: ATORVASTATIN 20 MG TAB PO SCH (21:36)
[2020-11-26] MEDS: FAMOTIDINE 20 MG TAB PO SCH (21:37)
[2020-11-26] MEDS: HYDROcodone-ACET 5/325MG TAB PO PRN (21:38)
[2020-11-26 22:00] VITALS: BP 145/52
[2020-11-27 05:00] VITALS: BP 120/50
[2020-11-27] MEDS: VENLAFAXINE HCL 37.5mg XR cap PO SCH (05:28)
[2020-11-27] MEDS ORDERED: ADENOSINE 58 MG in GIVE UN-DILUTED 0 ML IV STA (08:24)
[2020-11-27 09:00] VITALS: BP 98/53
[2020-11-27] MEDS: LISINOPRIL 20 MG TAB PO SCH ×2 (10:00→21:30)
[2020-11-27] MEDS: METOPROLOL TARTRATE 25 MG TAB PO SCH ×2 (10:00→21:29)
[2020-11-27] MEDS: CLOPIDOGREL BISULFATE 75 MG TAB PO SCH ×2 (10:00→18:45)
[2020-11-27 11:09] LABS: Basophils # (auto) 0.1 10 ^3/uL (0-0.2); Basophils % (auto) 1.3 % (0.0-2.0); Eosinophils # (auto) 0.2 10 ^3/uL (0-0.8); Eosinophils % (auto) 2.7 % (0.0-7.0); Hematocrit 38.1 % (36.0-46.0); Hemoglobin 12.7 g/dL (12.2-16.2); Lymphocytes # (auto) 0.7 10 ^3/uL (0.4-5.4); Lymphocytes % (auto) 7.9 % (10.0-50.0); Mean Corpuscular Hgb Conc. 33.4 g/dL (32.0-36.0); Mean Corpuscular Volume 92.7 fL (80.0-100.0); Monocytes # (auto) 0.8 10 ^3/uL (0-1.3); Monocytes % (auto) 9.1 % (0.0-12.0); Neutrophils # (auto) 6.8 10 ^3/uL (1.6-8.6); Red Blood Cells 4.11 10^6/uL (4.0-5.20); Red Cell Distribution Width 13.7 % (11.8-14.3); White Blood Cell 8.6 10^3/uL (4.4-10.8)
[2020-11-27 11:27] LABS: Albumin 2.9 g/dL (3.4-5.0); Calcium 8.7 mg/dL (8.5-10.1); Magnesium 1.8 mg/dL (1.6-2.6); Potassium 3.4 mmol/L (3.5-5.1)
[2020-11-27 11:31] LABS: BUN/Creatinine Ratio 6.3; Bilirubin, Total 0.5 mg/dL (0.2-1.0); Total Protein 7.2 g/dL (6.4-8.2)
[2020-11-27 13:00] VITALS: BP 102/67
[2020-11-27 17:00] VITALS: BP 150/68
[2020-11-27] MEDS: HYDROcodone-ACET 5/325MG TAB PO PRN (18:46)
[2020-11-27] MEDS: ATORVASTATIN 20 MG TAB PO SCH (21:29)
[2020-11-27] MEDS: FAMOTIDINE 20 MG TAB PO SCH (21:29)
[2020-11-27 22:00] VITALS: BP_SYST 150; BP_SYST 152; BP_DIAS 69; BP_DIAS 73
[2020-11-28 05:00] VITALS: BP 156/83
[2020-11-28] MEDS: VENLAFAXINE HCL 37.5mg XR cap PO SCH (05:49)
[2020-11-28] MEDS: HYDROcodone-ACET 5/325MG TAB PO PRN ×2 (05:50→17:50)
[2020-11-28 08:51] VITALS: BP 145/99
[2020-11-28 09:49] VITALS: BP 146/53
[2020-11-28] MEDS: LISINOPRIL 20 MG TAB PO SCH ×2 (10:00→23:00)
[2020-11-28] MEDS: CLOPIDOGREL BISULFATE 75 MG TAB PO SCH (10:00)
[2020-11-28 11:32] LABS: Albumin 2.8 g/dL (3.4-5.0); Calcium 8.3 mg/dL (8.5-10.1); Magnesium 1.7 mg/dL (1.6-2.6); Potassium 3.4 mmol/L (3.5-5.1)
[2020-11-28 11:35] LABS: BUN/Creatinine Ratio 5.9; Bilirubin, Total 0.5 mg/dL (0.2-1.0); Phosphorus 2.3 mg/dL (2.5-4.90); Total Protein 6.9 g/dL (6.4-8.2)
[2020-11-28] MEDS: METOPROLOL TARTRATE 25 MG TAB PO SCH (12:38)
[2020-11-28 12:54] VITALS: BP 117/70
[2020-11-28] MEDS ORDERED: AZITHROMYCIN 500MG/ 250ML 250 ML IV SCH (13:45)
[2020-11-28 16:35] VITALS: BP 108/68
[2020-11-28 22:00] VITALS: BP 164/70
[2020-11-28] MEDS: ATORVASTATIN 20 MG TAB PO SCH (22:00)
[2020-11-28] MEDS: FAMOTIDINE 20 MG TAB PO SCH (23:00)
[2020-11-29] MEDS: LABETALOL HCL 200 MG TAB PO PRN (00:34)
[2020-11-29] MEDS: MORPHINE SULFATE 4 MG/ML SYR/VIAL IV PRN ×2 (00:35→23:30)
[2020-11-29] MEDS: ONDANSETRON HCL 4 MG/2 ML VIAL IV PRN ×2 (00:36→23:31)
[2020-11-29 05:00] VITALS: BP 96/53
[2020-11-29] MEDS: VENLAFAXINE HCL 37.5mg XR cap PO SCH (06:14)
[2020-11-29 08:00] VITALS: BP 114/54
[2020-11-29] MEDS ORDERED: CHOLECALCIFEROL (VITD3) 1,000UNIT=25mCg TAB PO SCH (10:00)
[2020-11-29] MEDS ORDERED: ASCORBIC ACID 500 MG TAB PO SCH (10:00)
[2020-11-29] MEDS ORDERED: ZINC SULFATE 220mg CAP or TAB PO SCH (10:00)
[2020-11-29] MEDS: CLOPIDOGREL BISULFATE 75 MG TAB PO SCH (10:14)
[2020-11-29] MEDS: LISINOPRIL 20 MG TAB PO SCH ×2 (10:15→22:56)
[2020-11-29 12:00] VITALS: BP 112/73
[2020-11-29 16:00] VITALS: BP 157/56
[2020-11-29] MEDS: AZITHROMYCIN 500MG/ 250ML 250 ML IV SCH (17:40)
[2020-11-29] MEDS: SODIUM CHLORIDE 0.9% 1,000 ML IV SCH (17:40)
[2020-11-29] MEDS: Ensure HIGH Protein Chocolate 8oz Bottle PO SCH (17:40)
[2020-11-29 18:52] LABS: Urine Bacteria FEW /hpf (None Seen); Urine Blood Negative /uL (Negative); Urine Mucus FEW (None Seen); Urine Specific Gravity 1.022 (1.001-1.035); Urine WBC 6 /hpf (0 - 5)
[2020-11-29] MEDS: ACETAMINOPHEN 325 MG TAB PO PRN (18:53)
[2020-11-29] MEDS: HYDROcodone-ACET 5/325MG TAB PO PRN (20:22)
[2020-11-29 22:00] VITALS: BP 153/71
[2020-11-29] MEDS: FAMOTIDINE 20 MG TAB PO SCH (22:55)
[2020-11-29] MEDS: ATORVASTATIN 20 MG TAB PO SCH (22:56)
[2020-11-30 05:00] VITALS: BP 167/72
[2020-11-30] MEDS: SODIUM CHLORIDE 0.9% 1,000 ML IV SCH ×2 (06:09→21:10)
[2020-11-30] MEDS: VENLAFAXINE HCL 37.5mg XR cap PO SCH (06:09)
[2020-11-30 07:37] LABS: Basophils # (auto) 0.1 10 ^3/uL (0-0.2); Basophils % (auto) 1.4 % (0.0-2.0); Eosinophils # (auto) 0.3 10 ^3/uL (0-0.8); Eosinophils % (auto) 5.6 % (0.0-7.0); Hematocrit 34.9 % (36.0-46.0); Hemoglobin 11.8 g/dL (12.2-16.2); Lymphocytes # (auto) 0.9 10 ^3/uL (0.4-5.4); Lymphocytes % (auto) 14.9 % (10.0-50.0); Mean Corpuscular Hemoglobin 30.6 pg (28.0-32.0); Mean Corpuscular Hgb Conc. 33.8 g/dL (32.0-36.0); Mean Corpuscular Volume 90.6 fL (80.0-100.0); Monocytes # (auto) 0.8 10 ^3/uL (0-1.3); Monocytes % (auto) 13.1 % (0.0-12.0); Neutrophils # (auto) 3.8 10 ^3/uL (1.6-8.6); Nucleated Red Blood Cells % 0.1 %; Red Blood Cells 3.85 10^6/uL (4.0-5.20); Red Cell Distribution Width 13.3 % (11.8-14.3); White Blood Cell 5.8 10^3/uL (4.4-10.8)
[2020-11-30 07:55] LABS: Albumin 2.6 g/dL (3.4-5.0); Calcium 7.9 mg/dL (8.5-10.1); Potassium 3.1 mmol/L (3.5-5.1)
[2020-11-30 08:00] VITALS: BP 117/46
[2020-11-30] MEDS: Ensure HIGH Protein Chocolate 8oz Bottle PO SCH ×3 (08:00→18:09)
[2020-11-30 08:05] LABS: BUN/Creatinine Ratio 12.1; Bilirubin, Total 0.4 mg/dL (0.2-1.0); CRP High Sensitivity 4.53 mg/dL (< 0.3); Magnesium 1.5 mg/dL (1.6-2.6); Total Protein 6.3 g/dL (6.4-8.2)
[2020-11-30] MEDS: MORPHINE SULFATE 4 MG/ML SYR/VIAL IV PRN ×3 (09:22→21:24)
[2020-11-30] MEDS: AZITHROMYCIN 500MG/ 250ML 250 ML IV SCH (09:22)
[2020-11-30] MEDS: CLOPIDOGREL BISULFATE 75 MG TAB PO SCH (10:28)
[2020-11-30] MEDS: LISINOPRIL 20 MG TAB PO SCH ×2 (10:28→21:18)
[2020-11-30] MEDS: CHOLECALCIFEROL (VITD3) 2,000 UNIT CAP/TAB PO SCH (10:28)
[2020-11-30] MEDS: ZINC SULFATE 220mg CAP or TAB PO SCH (10:29)
[2020-11-30] MEDS: ASCORBIC ACID 500 MG TAB PO SCH (10:29)
[2020-11-30] MEDS ORDERED: POTASSIUM PHOSPHATE 44 MEQ in D5W 5% 250 ML IV ONE (13:00)
[2020-11-30] MEDS: MAGNESIUM SULFATE 1GM/100ML 100 ML IV SCH ×2 (13:00→15:24)
[2020-11-30 17:14] VITALS: BP 135/58
[2020-11-30] MEDS: ATORVASTATIN 20 MG TAB PO SCH (21:11)
[2020-11-30] MEDS: FAMOTIDINE 20 MG TAB PO SCH (21:17)
[2020-11-30 22:14] VITALS: BP 152/64
[2020-12-01] MEDS: MORPHINE SULFATE 4 MG/ML SYR/VIAL IV PRN ×4 (03:14→18:24)
[2020-12-01 05:00] VITALS: BP 151/106
[2020-12-01] MEDS: VENLAFAXINE HCL 37.5mg XR cap PO SCH (06:30)
[2020-12-01] MEDS ORDERED: SODIUM CHLORIDE 0.9% 1,000 ML IV SCH (07:45)
[2020-12-01] MEDS ORDERED: hydrALAZINE HCL 20 MG/ML VL IV PRN (07:45)
[2020-12-01] MEDS: Ensure HIGH Protein Chocolate 8oz Bottle PO SCH ×3 (08:00→18:00)
[2020-12-01 08:44] VITALS: BP 134/72
[2020-12-01 09:07] LABS: Albumin 2.6 g/dL (3.4-5.0); Calcium 8.5 mg/dL (8.5-10.1); Magnesium 2.2 mg/dL (1.6-2.6); Potassium 3.7 mmol/L (3.5-5.1)
[2020-12-01 09:18] LABS: BUN/Creatinine Ratio 6.7; Bilirubin, Total 0.4 mg/dL (0.2-1.0); CRP High Sensitivity 5.51 mg/dL (< 0.3); Phosphorus 3.3 mg/dL (2.5-4.90); Total Protein 6.5 g/dL (6.4-8.2)
[2020-12-01] MEDS: AZITHROMYCIN 500MG/ 250ML 250 ML IV SCH (10:07)
[2020-12-01] MEDS: CLOPIDOGREL BISULFATE 75 MG TAB PO SCH (10:09)
[2020-12-01] MEDS: CHOLECALCIFEROL (VITD3) 2,000 UNIT CAP/TAB PO SCH (10:09)
[2020-12-01] MEDS: ZINC SULFATE 220mg CAP or TAB PO SCH (10:09)
[2020-12-01] MEDS: ASCORBIC ACID 500 MG TAB PO SCH (10:09)
[2020-12-01] MEDS: LISINOPRIL 20 MG TAB PO SCH ×2 (10:09→22:21)
[2020-12-01 13:31] VITALS: BP 147/67
[2020-12-01 16:13] VITALS: BP 150/70
[2020-12-01 22:00] VITALS: BP 137/61
[2020-12-01] MEDS: ATORVASTATIN 20 MG TAB PO SCH (22:20)
[2020-12-01] MEDS: FAMOTIDINE 20 MG TAB PO SCH (22:20)
[2020-12-02] MEDS: MORPHINE SULFATE 4 MG/ML SYR/VIAL IV PRN ×3 (03:27→18:46)
[2020-12-02 05:00] VITALS: BP 169/84
[2020-12-02 06:15] LABS: Basophils # (auto) 0.1 10 ^3/uL (0-0.2); Eosinophils # (auto) 0.2 10 ^3/uL (0-0.8); Eosinophils % (auto) 2.4 % (0.0-7.0); Hematocrit 38.6 % (36.0-46.0); Hemoglobin 13.2 g/dL (12.2-16.2); Lymphocytes # (auto) 0.7 10 ^3/uL (0.4-5.4); Lymphocytes % (auto) 9.2 % (10.0-50.0); Mean Corpuscular Hemoglobin 31.2 pg (28.0-32.0); Mean Corpuscular Hgb Conc. 34.1 g/dL (32.0-36.0); Mean Corpuscular Volume 91.5 fL (80.0-100.0); Monocytes # (auto) 1.1 10 ^3/uL (0-1.3); Monocytes % (auto) 15.1 % (0.0-12.0); Neutrophils # (auto) 5.5 10 ^3/uL (1.6-8.6); Neutrophils % (auto) 72.3 % (37.0-80.0); Red Blood Cells 4.21 10^6/uL (4.0-5.20); Red Cell Distribution Width 13.8 % (11.8-14.3); White Blood Cell 7.6 10^3/uL (4.4-10.8)
[2020-12-02 06:32] LABS: Albumin 2.6 g/dL (3.4-5.0); Calcium 8.8 mg/dL (8.5-10.1); Magnesium 1.9 mg/dL (1.6-2.6)
[2020-12-02 06:41] LABS: BUN/Creatinine Ratio 8.6; Bilirubin, Total 0.4 mg/dL (0.2-1.0); CRP High Sensitivity 10.5 mg/dL (< 0.3); Total Protein 6.9 g/dL (6.4-8.2)
[2020-12-02] MEDS: VENLAFAXINE HCL 37.5mg XR cap PO SCH (07:37)
[2020-12-02 08:00] VITALS: BP 137/61
[2020-12-02] MEDS: Ensure HIGH Protein Chocolate 8oz Bottle PO SCH ×3 (08:00→18:00)
[2020-12-02 09:13] VITALS: BP 150/84
[2020-12-02] MEDS: ASCORBIC ACID 500 MG TAB PO SCH (09:28)
[2020-12-02] MEDS: ZINC SULFATE 220mg CAP or TAB PO SCH (09:28)
[2020-12-02] MEDS: AZITHROMYCIN 500MG/ 250ML 250 ML IV SCH (09:28)
[2020-12-02] MEDS: CLOPIDOGREL BISULFATE 75 MG TAB PO SCH (09:28)
[2020-12-02] MEDS: CHOLECALCIFEROL (VITD3) 2,000 UNIT CAP/TAB PO SCH (09:29)
[2020-12-02] MEDS: LISINOPRIL 20 MG TAB PO SCH ×2 (09:30→22:19)
[2020-12-02 12:44] VITALS: BP 114/89
[2020-12-02] MEDS ORDERED: METOPROLOL TARTRATE 1MG/1ML-5ML VIAL IV ONE (14:30)
[2020-12-02] MEDS ORDERED: CARISOPRODOL 350 MG TAB PO PRN (15:00)
[2020-12-02 17:00] VITALS: BP 126/91
[2020-12-02] MEDS: FAMOTIDINE 20 MG TAB PO SCH (22:18)
[2020-12-02] MEDS: PIPERACILLIN-TAZOB 3.375GM 100 ML IV SCH (22:18)
[2020-12-02] MEDS: ATORVASTATIN 20 MG TAB PO SCH (22:18)
[2020-12-02 23:19] VITALS: BP 105/56
[2020-12-03 05:15] VITALS: BP 100/57
[2020-12-03] MEDS: VENLAFAXINE HCL 37.5mg XR cap PO SCH (05:54)
[2020-12-03] MEDS: PIPERACILLIN-TAZOB 3.375GM 100 ML IV SCH ×3 (05:54→22:11)
[2020-12-03 08:00] VITALS: BP 105/56
[2020-12-03] MEDS: Ensure HIGH Protein Chocolate 8oz Bottle PO SCH ×3 (08:00→18:00)
[2020-12-03 09:08] VITALS: BP 126/66
[2020-12-03] MEDS: CLOPIDOGREL BISULFATE 75 MG TAB PO SCH (09:43)
[2020-12-03] MEDS: AZITHROMYCIN 500MG/ 250ML 250 ML IV SCH (09:43)
[2020-12-03] MEDS: CHOLECALCIFEROL (VITD3) 2,000 UNIT CAP/TAB PO SCH (09:43)
[2020-12-03] MEDS: ZINC SULFATE 220mg CAP or TAB PO SCH (09:43)
[2020-12-03] MEDS: ASCORBIC ACID 500 MG TAB PO SCH (09:43)
[2020-12-03 12:58] VITALS: BP 128/77
[2020-12-03] MEDS: METOPROLOL TARTRATE 25 MG TAB PO SCH ×2 (14:33→22:11)
[2020-12-03] MEDS: MORPHINE SULFATE 4 MG/ML SYR/VIAL IV PRN (15:13)
[2020-12-03 17:00] VITALS: BP 150/46
[2020-12-03] MEDS ORDERED: CYANOCOBALAMIN (B-12) 1000 MCG/1 ML VIAL IM ONE (21:30)
[2020-12-03 22:00] VITALS: BP 102/76
[2020-12-03] MEDS: LISINOPRIL 5 MG TAB PO SCH (22:00)
[2020-12-03] MEDS: ATORVASTATIN 20 MG TAB PO SCH (22:11)
[2020-12-03] MEDS: FAMOTIDINE 20 MG TAB PO SCH (22:11)
[2020-12-03] MEDS: HYDROcodone-ACET 5/325MG TAB PO PRN (22:25)
[2020-12-04 05:00] VITALS: BP 101/68
[2020-12-04] MEDS: PIPERACILLIN-TAZOB 3.375GM 100 ML IV SCH ×3 (06:18→21:05)
[2020-12-04] MEDS: VENLAFAXINE HCL 37.5mg XR cap PO SCH (06:19)
[2020-12-04] MEDS: METOPROLOL TARTRATE 25 MG TAB PO SCH ×3 (06:19→21:06)
[2020-12-04 06:47] LABS: Basophils # (auto) 0.1 10 ^3/uL (0-0.2); Basophils % (auto) 1.1 % (0.0-2.0); Eosinophils # (auto) 0.3 10 ^3/uL (0-0.8); Eosinophils % (auto) 5.1 % (0.0-7.0); Hemoglobin 11.8 g/dL (12.2-16.2); Lymphocytes # (auto) 0.9 10 ^3/uL (0.4-5.4); Lymphocytes % (auto) 13.3 % (10.0-50.0); Mean Corpuscular Hemoglobin 31.4 pg (28.0-32.0); Mean Corpuscular Hgb Conc. 34.8 g/dL (32.0-36.0); Mean Corpuscular Volume 90.2 fL (80.0-100.0); Monocytes # (auto) 1.1 10 ^3/uL (0-1.3); Neutrophils # (auto) 4.3 10 ^3/uL (1.6-8.6); Neutrophils % (auto) 63.5 % (37.0-80.0); Red Blood Cells 3.77 10^6/uL (4.0-5.20); Red Cell Distribution Width 13.5 % (11.8-14.3); White Blood Cell 6.7 10^3/uL (4.4-10.8)
[2020-12-04 06:59] LABS: Albumin 2.4 g/dL (3.4-5.0); Calcium 8.6 mg/dL (8.5-10.1); Magnesium 1.8 mg/dL (1.6-2.6); Potassium 3.4 mmol/L (3.5-5.1)
[2020-12-04 07:09] LABS: BUN/Creatinine Ratio 9.4; Bilirubin, Total 0.5 mg/dL (0.2-1.0); CRP High Sensitivity 11.6 mg/dL (< 0.3); Phosphorus 2.5 mg/dL (2.5-4.90); Total Protein 6.6 g/dL (6.4-8.2)
[2020-12-04 08:30] VITALS: BP 105/46
[2020-12-04] MEDS: Ensure HIGH Protein Chocolate 8oz Bottle PO SCH ×3 (08:48→18:29)
[2020-12-04] MEDS: LISINOPRIL 5 MG TAB PO SCH ×2 (10:00→21:05)
[2020-12-04] MEDS: CYANOCOBALAMIN 500 MCG TAB PO SCH (10:08)
[2020-12-04] MEDS: ZINC SULFATE 220mg CAP or TAB PO SCH (10:08)
[2020-12-04] MEDS: AZITHROMYCIN 500MG/ 250ML 250 ML IV SCH (10:08)
[2020-12-04] MEDS: CLOPIDOGREL BISULFATE 75 MG TAB PO SCH (10:09)
[2020-12-04] MEDS: ASCORBIC ACID 500 MG TAB PO SCH (10:09)
[2020-12-04] MEDS: CHOLECALCIFEROL (VITD3) 2,000 UNIT CAP/TAB PO SCH (10:09)
[2020-12-04] MEDS ORDERED: MORPHINE SULFATE INJECTION 2 MG/ML SYRG IV PRN (11:45)
[2020-12-04 12:30] VITALS: BP 157/75
[2020-12-04] MEDS: HYDROcodone-ACET 5/325MG TAB PO PRN (15:36)
[2020-12-04 17:00] VITALS: BP 155/64
[2020-12-04] MEDS: ONDANSETRON HCL 4 MG/2 ML VIAL IV PRN (21:04)
[2020-12-04] MEDS: FAMOTIDINE 20 MG TAB PO SCH (21:05)
[2020-12-04] MEDS: ATORVASTATIN 20 MG TAB PO SCH (21:05)
[2020-12-04 22:00] VITALS: BP 89/59
[2020-12-05] MEDS: HYDROcodone-ACET 5/325MG TAB PO PRN ×2 (00:08→05:43)
[2020-12-05 05:00] VITALS: BP 110/74
[2020-12-05] MEDS: VENLAFAXINE HCL 37.5mg XR cap PO SCH (05:43)
[2020-12-05] MEDS: PIPERACILLIN-TAZOB 3.375GM 100 ML IV SCH ×3 (05:43→21:30)
[2020-12-05] MEDS: METOPROLOL TARTRATE 25 MG TAB PO SCH ×4 (05:44→21:32)
[2020-12-05] MEDS: Ensure HIGH Protein Chocolate 8oz Bottle PO SCH ×3 (08:00→18:00)
[2020-12-05 08:42] VITALS: BP 100/64
[2020-12-05] MEDS: ZINC SULFATE 220mg CAP or TAB PO SCH (09:55)
[2020-12-05] MEDS: AZITHROMYCIN 500MG/ 250ML 250 ML IV SCH (09:55)
[2020-12-05] MEDS: CHOLECALCIFEROL (VITD3) 2,000 UNIT CAP/TAB PO SCH (09:56)
[2020-12-05] MEDS: ASCORBIC ACID 500 MG TAB PO SCH (09:56)
[2020-12-05] MEDS: CLOPIDOGREL BISULFATE 75 MG TAB PO SCH (09:56)
[2020-12-05] MEDS: CYANOCOBALAMIN 500 MCG TAB PO SCH (09:56)
[2020-12-05] MEDS: LISINOPRIL 5 MG TAB PO SCH ×2 (09:58→21:37)
[2020-12-05 13:00] VITALS: BP 102/69
[2020-12-05 16:44] VITALS: BP 110/74
[2020-12-05] MEDS: ATORVASTATIN 20 MG TAB PO SCH (21:31)
[2020-12-05] MEDS: FAMOTIDINE 20 MG TAB PO SCH (21:37)
[2020-12-05 22:13] VITALS: BP 96/57
[2020-12-06 05:00] VITALS: BP 99/51
[2020-12-06] MEDS: METOPROLOL TARTRATE 25 MG TAB PO SCH ×2 (05:23→14:00)
[2020-12-06] MEDS: VENLAFAXINE HCL 37.5mg XR cap PO SCH (05:24)
[2020-12-06] MEDS: PIPERACILLIN-TAZOB 3.375GM 100 ML IV SCH ×2 (05:24→14:00)
[2020-12-06] MEDS: Ensure HIGH Protein Chocolate 8oz Bottle PO SCH ×3 (08:00→18:00)
[2020-12-06 08:48] VITALS: BP 129/68
[2020-12-06] MEDS: AZITHROMYCIN 500MG/ 250ML 250 ML IV SCH (10:07)
[2020-12-06] MEDS: CLOPIDOGREL BISULFATE 75 MG TAB PO SCH (10:08)
[2020-12-06] MEDS: ZINC SULFATE 220mg CAP or TAB PO SCH (10:08)
[2020-12-06] MEDS: CYANOCOBALAMIN 500 MCG TAB PO SCH (10:08)
[2020-12-06] MEDS: CHOLECALCIFEROL (VITD3) 2,000 UNIT CAP/TAB PO SCH (10:09)
[2020-12-06] MEDS: ASCORBIC ACID 500 MG TAB PO SCH (10:09)
[2020-12-06] MEDS: LISINOPRIL 5 MG TAB PO SCH (10:12)
[2020-12-06] MEDS: ACETAMINOPHEN 325 MG TAB PO PRN (10:30)
[2020-12-06] MEDS: ONDANSETRON HCL 4 MG/2 ML VIAL IV PRN (12:39)
[2020-12-06 13:00] VITALS: BP 111/74
[2020-12-06 13:55] VITALS: BP 111/74
== END 2020-12-06 18:30 | disposition home health service (06) | DRG 137 ==
LOC: ER 15:00 → EDUNIT# 15:00 → EDBD 15:00 → TELE 15:01 → TELE-WESTW 22:49 → WEST WING 11-25 21:53 → TELE-WESTW 11-25 22:56 → TELE-CENTR 11-27 21:24 → TELE-WESTW 11-30 07:43 → TELE-EAST 12-01 17:30
PROVIDERS: ADMIT Nurse Practitioner; ATTEND Nurse Practitioner
PROC: 05HB33Z Insertion of Infusion Device into Right Basilic Vein, Percutaneous Approach (ICD-10-PCS; principal; 2020-12-02)
PROC: B54MZZA Ultrasonography of Right Upper Extremity Veins, Guidance (ICD-10-PCS; 2020-12-02)
DX: U07.1 COVID-19 (principal); G93.49 Other encephalopathy; I69.354 Hemiplegia and hemiparesis following cerebral infarction affecting left non-dominant side; I16.1 Hypertensive emergency; E86.0 Dehydration; E78.5 Hyperlipidemia, unspecified; G31.9 Degenerative disease of nervous system, unspecified; F32.9 Major depressive disorder, single episode, unspecified; G89.29 Other chronic pain; M54.5 Low back pain; M19.90 Unspecified osteoarthritis, unspecified site; I67.2 Cerebral atherosclerosis; J44.9 Chronic obstructive pulmonary disease, unspecified; I25.10 Atherosclerotic heart disease of native coronary artery without angina pectoris; N18.9 Chronic kidney disease, unspecified; I12.9 Hypertensive chronic kidney disease with stage 1 through stage 4 chronic kidney disease, or unspecified chronic kidney disease; F17.210 Nicotine dependence, cigarettes, uncomplicated; Z79.899 Other long term (current) drug therapy; Z90.710 Acquired absence of both cervix and uterus; Z90.49 Acquired absence of other specified parts of digestive tract; Z80.8 Family history of malignant neoplasm of other organs or systems; Z87.442 Personal history of urinary calculi; Z80.0 Family history of malignant neoplasm of digestive organs; Z88.6 Allergy status to analgesic agent; Z88.2 Allergy status to sulfonamides; Z79.02 Long term (current) use of antithrombotics/antiplatelets; Z79.82 Long term (current) use of aspirin
CPT/HCPCS: 36415; 70450; 71045; 73700; 78452; 80053; 80061; 81001; 82607; 82728; 83615; 83735; 84100; 84484; 85025; 85379; 86141; 87086; 87426; 93005; 93017; 93306; 93970; 96361; 96374; 96375; 97110; 97116; 97530; 99291; G0378; J0153; J2405; J2543; J7060

== ENCOUNTER 2021-08-31 14:25 | Inpatient (IN) | payer MEDICARE, MEDICAID ==
[~2021-08-31] VITALS: Ht 167.6 cm; Wt 68.6 kg
[2021-08-31] MEDS ORDERED: SODIUM CHLORIDE 0.9% 1,000 ML IV ONE (15:15)
[2021-08-31 15:32] LABS: Basophils # (auto) 0 10 ^3/uL (0-0.2); Basophils % (auto) 0.2 % (0.0-2.0); Eosinophils # (auto) 0.1 10 ^3/uL (0-0.8); Eosinophils % (auto) 0.8 % (0.0-7.0); Hematocrit 51.9 % (36.0-46.0); Hemoglobin 16.4 g/dL (12.2-16.2); Lymphocytes # (auto) 0.8 10 ^3/uL (0.4-5.4); Mean Corpuscular Hemoglobin 30.7 pg (28.0-32.0); Mean Corpuscular Hgb Conc. 31.6 g/dL (32.0-36.0); Mean Corpuscular Volume 97.3 fL (80.0-100.0); Monocytes # (auto) 0.3 10 ^3/uL (0-1.3); Monocytes % (auto) 2.2 % (0.0-12.0); Neutrophils % (auto) 90.8 % (37.0-80.0); Nucleated Red Blood Cells % 0.1 %; Red Blood Cells 5.33 10^6/uL (4.0-5.20); Red Cell Distribution Width 14.6 % (11.8-14.3); White Blood Cell 13.2 10^3/uL (4.4-10.8)
[2021-08-31 15:49] LABS: INR 1.1 (0.9-1.15); Partial Thromboplastin Time 20.2 sec (23.6-33.0)
[2021-08-31 16:06] LABS: Albumin 2.6 g/dL (3.4-5.0); BUN/Creatinine Ratio 20.1; Bilirubin, Total 0.3 mg/dL (0.2-1.0); Calcium 9.2 mg/dL (8.5-10.1); Potassium 4.3 mmol/L (3.5-5.1); Total Protein 7.5 g/dL (6.4-8.2)
[2021-08-31 16:43] LABS: Urine Bacteria MANY /hpf (None Seen); Urine Blood Negative /uL (Negative); Urine Hyaline Cast FEW /lpf (0 - 2); Urine Mucus FEW (None Seen); Urine Specific Gravity 1.013 (1.001-1.035); Urine WBC 88 /hpf (0 - 5)
[2021-08-31] MEDS ORDERED: NITROGLYCERIN 0.4 MG SL TAB SL PRN ×2 (17:45→23:00)
[2021-08-31] MEDS ORDERED: MORPHINE SULFATE INJECTION 2 MG/ML SYRG IV PRN ×3 (17:45→23:00)
[2021-08-31] MEDS ORDERED: ENOXAPARIN SOD 80 MG/0.8ML SYRINGE SC ONE (18:45)
[2021-08-31 19:14] LABS: Cholesterol 113 mg/dL (< 200); HDL Cholesterol 36 mg/dL (40-59); LDL Cholesterol 56 mg/dL (< 100); Triglycerides 161 mg/dL (< 150)
[2021-08-31 22:00] VITALS: BP 121/102
[2021-08-31 23:00] VITALS: BP 121/102
[2021-08-31] MEDS ORDERED: ACETAMINOPHEN 325 MG TAB PO PRN (23:00)
[2021-08-31] MEDS ORDERED: LORazepam 2MG/ML-1ML VIAL IV PRN (23:00)
[2021-08-31] MEDS ORDERED: ALUM & MAG HYDROX-SIMETH LIQ(MAALOX) 30 ML PO PRN (23:00)
[2021-08-31] MEDS ORDERED: FAMOTIDINE (10MG/ML) 2ML VL IV ONE ×2 (23:00)
[2021-08-31] MEDS ORDERED: levoFLOXacin 250MG 50 ML IV ONE (23:00)
[2021-08-31] MEDS ORDERED: LACTATED RINGER'S 1,000 ML IV ONE (23:00)
[2021-08-31] MEDS ORDERED: METOCLOPRAMIDE HCL 5MG/ml INJ 2ml VIAL IV PRN (23:00)
[2021-08-31] MEDS ORDERED: LORazepam 0.5 MG TAB PO PRN (23:00)
[2021-08-31] MEDS ORDERED: HYDROcodone-ACET 5/325MG TAB PO PRN (23:00)
[2021-08-31] MEDS ORDERED: hydrALAZINE HCL 20 MG/ML VL IV PRN (23:00)
[2021-08-31] MEDS ORDERED: CLON0.5T PO (23:55)
[2021-09-01] MEDS: SODIUM CHLORIDE 0.9% 1,000 ML IV SCH ×2 (03:09→13:05)
[2021-09-01 05:00] VITALS: BP 99/58
[2021-09-01 09:00] VITALS: BP 135/80
[2021-09-01] MEDS ORDERED: ERTAPENEM SOD INJ 1 GM in SODIUM CHL 0.9% 50 ML IV ONE (09:15)
[2021-09-01] MEDS ORDERED: ENOXAPARIN SOD 40 MG/0.4 ML SYRINGE SC SCH (10:00)
[2021-09-01] MEDS ORDERED: CLOPIDOGREL BISULFATE 75 MG TAB PO SCH (10:00)
[2021-09-01] MEDS ORDERED: FAMOTIDINE (10MG/ML) 2ML VL IV SCH (10:00)
[2021-09-01] MEDS ORDERED: ERTAPENEM SOD INJ 1 GM in SODIUM CHL 0.9% 50 ML IV SCH (10:00)
[2021-09-01] MEDS ORDERED: ENOXAPARIN SOD 30 MG/0.3 ML SYRINGE SC SCH (10:00)
[2021-09-01 13:00] VITALS: BP 116/65
[2021-09-01] MEDS: FAMOTIDINE (10MG/ML) 2ML VL IV SCH ×2 (13:05→22:05)
[2021-09-01] MEDS: ERTAPENEM SOD INJ 0.5 GM in SODIUM CHL 0.9% 50 ML IV SCH (13:59)
[2021-09-01 14:35] LABS: Albumin 2.1 g/dL (3.4-5.0); BUN/Creatinine Ratio 28.3; Bilirubin, Total 0.4 mg/dL (0.2-1.0); Calcium 8.5 mg/dL (8.5-10.1); Phosphorus 3.4 mg/dL (2.5-4.90); Total Protein 6.6 g/dL (6.4-8.2)
[2021-09-01 14:42] LABS: Basophils # (auto) 0 10 ^3/uL (0-0.2); Basophils % (auto) 0.1 % (0.0-2.0); Eosinophils # (auto) 0 10 ^3/uL (0-0.8); Hemoglobin 16.1 g/dL (12.2-16.2); Lymphocytes # (auto) 0.5 10 ^3/uL (0.4-5.4); Lymphocytes % (auto) 4.2 % (10.0-50.0); Mean Corpuscular Hemoglobin 31.1 pg (28.0-32.0); Mean Corpuscular Hgb Conc. 33.5 g/dL (32.0-36.0); Mean Corpuscular Volume 92.8 fL (80.0-100.0); Monocytes # (auto) 1.2 10 ^3/uL (0-1.3); Monocytes % (auto) 9.7 % (0.0-12.0); Neutrophils # (auto) 10.5 10 ^3/uL (1.6-8.6); Nucleated Red Blood Cells % 0.3 %; Red Blood Cells 5.17 10^6/uL (4.0-5.20); Red Cell Distribution Width 14.7 % (11.8-14.3); White Blood Cell 12.2 10^3/uL (4.4-10.8)
[2021-09-01 14:57] LABS: Potassium 5.7 mmol/L (3.5-5.1)
[2021-09-01 14:59] LABS: Urine Bacteria FEW /hpf (None Seen); Urine Blood Negative /uL (Negative); Urine Hyaline Cast FEW /lpf (0 - 2); Urine Specific Gravity 1.013 (1.001-1.035); Urine WBC 4 /hpf (0 - 5)
[2021-09-01 15:10] LABS: Alcohol, Urine < 3.0 mg/dL (0-10); Amphetamine Screen, Urine NEGATIVE (NEGATIVE); Barbiturate Scree,Urine NEGATIVE (NEGATIVE); Benzodiazephine Screen, Urine NEGATIVE (NEGATIVE); Cannabinoid Screen, Urine POSITIVE (NEGATIVE); Opiate Scree,Urine NEGATIVE (NEGATIVE); Phencyclidine Screen, Urine NEGATIVE (NEGATIVE)
[2021-09-01 15:17] LABS: Cocaine Screen, Urine NEGATIVE (NEGATIVE)
[2021-09-01] MEDS ORDERED: CALCIUM CHL 100MG/ML 1,000 MG in D5W 5% 100 ML IV ONE (15:30)
[2021-09-01] MEDS ORDERED: InsuLIN REG 1unit/0.01ml Soln (100units/ml) IV ONE (15:30)
[2021-09-01] MEDS ORDERED: DEXTROSE (50%) 50ML SYRG IV ONE (15:30)
[2021-09-01 16:43] VITALS: BP 136/62
[2021-09-01] MEDS: SODIUM BICARBONATE 50ML VIAL 50 ML in SOD CHL 0.45% 1,000 ML IV SCH ×2 (17:47→22:04)
[2021-09-01 22:00] VITALS: BP 150/88
[2021-09-01] MEDS: ATORVASTATIN 20 MG TAB PO SCH (22:05)
[2021-09-01] MEDS ORDERED: levoFLOXacin 250MG 50 ML IV SCH (23:00)
[2021-09-01 23:25] LABS: INR 1.21 (0.9-1.15); Partial Thromboplastin Time 33.5 sec (23.6-33.0)
[2021-09-02] MEDS: HYDROcodone-ACET 5/325MG TAB PO PRN ×2 (04:14→23:48)
[2021-09-02 05:00] VITALS: BP 109/58
[2021-09-02 06:04] LABS: BUN/Creatinine Ratio 29.5; Basophils # (auto) 0 10 ^3/uL (0-0.2); Basophils % (auto) 0.3 % (0.0-2.0); Calcium 8.8 mg/dL (8.5-10.1); Eosinophils # (auto) 0 10 ^3/uL (0-0.8); Eosinophils % (auto) 0.1 % (0.0-7.0); Hematocrit 37.3 % (36.0-46.0); Hemoglobin 12.2 g/dL (12.2-16.2); Lymphocytes # (auto) 0.6 10 ^3/uL (0.4-5.4); Lymphocytes % (auto) 5.5 % (10.0-50.0); Mean Corpuscular Hemoglobin 30.4 pg (28.0-32.0); Mean Corpuscular Hgb Conc. 32.6 g/dL (32.0-36.0); Mean Corpuscular Volume 93.4 fL (80.0-100.0); Monocytes # (auto) 1.7 10 ^3/uL (0-1.3); Monocytes % (auto) 14.9 % (0.0-12.0); Neutrophils # (auto) 8.9 10 ^3/uL (1.6-8.6); Neutrophils % (auto) 79.2 % (37.0-80.0); Nucleated Red Blood Cells % 0.1 %; Potassium 5.5 mmol/L (3.5-5.1); Red Cell Distribution Width 14.6 % (11.8-14.3); White Blood Cell 11.2 10^3/uL (4.4-10.8)
[2021-09-02 09:25] VITALS: BP 113/49
[2021-09-02] MEDS: ERTAPENEM SOD INJ 0.5 GM in SODIUM CHL 0.9% 50 ML IV SCH (10:00)
[2021-09-02] MEDS: FAMOTIDINE (10MG/ML) 2ML VL IV SCH ×2 (10:00→21:41)
[2021-09-02] MEDS ORDERED: METOPROLOL TARTRATE 1MG/1ML-5ML VIAL IV ONE (12:15)
[2021-09-02] MEDS ORDERED: dilTIAZem 25 MG/5 ML VIAL IV ONE (12:15)
[2021-09-02] MEDS ORDERED: SODIUM CHLORIDE 0.9% 500 ML IV ONE (12:15)
[2021-09-02 13:01] VITALS: BP 148/96
[2021-09-02] MEDS ORDERED: AMIODARONE 450mg/250ml AE 250 ML IV SCH ×2 (13:15→23:19)
[2021-09-02] MEDS ORDERED: AMIODARONE HCL 150 MG in D5W 5% 100 ML IV ONE (13:15)
[2021-09-02] MEDS: SODIUM CHLORIDE 0.9% 1,000 ML IV SCH (13:49)
[2021-09-02] MEDS ORDERED: ADENOSINE 6 MG/2 ML INJ IV ONE (15:15)
[2021-09-02 16:48] VITALS: BP 109/58
[2021-09-02] MEDS: ATORVASTATIN 20 MG TAB PO SCH (21:41)
[2021-09-02] MEDS: ERTAPENEM SOD INJ 1 GM in SODIUM CHL 0.9% 50 ML IV SCH ×3 (21:45→23:41)
[2021-09-02 22:00] VITALS: BP 158/72
[2021-09-03] MEDS: SODIUM CHLORIDE 0.9% 1,000 ML IV SCH (01:35)
[2021-09-03] MEDS: HYDROcodone-ACET 5/325MG TAB PO PRN ×5 (01:42→21:17)
[2021-09-03 05:00] VITALS: BP 152/69
[2021-09-03 05:47] LABS: Basophils # (auto) 0.1 10 ^3/uL (0-0.2); Basophils % (auto) 0.7 % (0.0-2.0); Eosinophils # (auto) 0.3 10 ^3/uL (0-0.8); Eosinophils % (auto) 2.6 % (0.0-7.0); Hematocrit 30.3 % (36.0-46.0); Hemoglobin 10.2 g/dL (12.2-16.2); Lymphocytes # (auto) 0.9 10 ^3/uL (0.4-5.4); Lymphocytes % (auto) 8.4 % (10.0-50.0); Mean Corpuscular Hgb Conc. 33.6 g/dL (32.0-36.0); Mean Corpuscular Volume 92.1 fL (80.0-100.0); Monocytes # (auto) 1.1 10 ^3/uL (0-1.3); Monocytes % (auto) 9.7 % (0.0-12.0); Neutrophils # (auto) 8.7 10 ^3/uL (1.6-8.6); Neutrophils % (auto) 78.6 % (37.0-80.0); Nucleated Red Blood Cells % 0.1 %; Red Blood Cells 3.29 10^6/uL (4.0-5.20); Red Cell Distribution Width 14.7 % (11.8-14.3); White Blood Cell 11.1 10^3/uL (4.4-10.8)
[2021-09-03 06:04] LABS: Chloride 117 mmol/L (98-107); Potassium 3.7 mmol/L (3.5-5.1); Sodium 144 mmol/L (136-145)
[2021-09-03 06:10] LABS: Alanine Aminotransferase < 6 U/L (13-56); Albumin 1.6 g/dL (3.4-5.0); Anion Gap 8 (5-15); BUN/Creatinine Ratio 31.3; Blood Urea Nitrogen 21 mg/dL (7-18); Calcium 7.3 mg/dL (8.5-10.1); Carbon Dioxide 19 mmol/L (21-32); GFR African American 110 mL/min; GFR Non-African American 91 mL/min; Glucose 104 mg/dL (74-106)
[2021-09-03 06:17] LABS: Alkaline Phosphatase 61 U/L (45-117); Aspartate Aminotransferase 16 U/L (15-37); Bilirubin, Total 0.2 mg/dL (0.2-1.0); Total Protein 4.5 g/dL (6.4-8.2)
[2021-09-03 08:30] VITALS: BP 160/62
[2021-09-03 08:47] VITALS: BP 160/62
[2021-09-03] MEDS: FAMOTIDINE (10MG/ML) 2ML VL IV SCH (10:03)
[2021-09-03] MEDS ORDERED: VANCOMYCIN PER PHARMACY 0 MG IV SCH (10:15)
[2021-09-03] MEDS ORDERED: METOPROLOL TARTRATE 25 MG TAB PO ONE (10:15)
[2021-09-03] MEDS ORDERED: VENLAFAXINE HCL 37.5mg XR cap PO ONE (10:15)
[2021-09-03] MEDS ORDERED: ADENOSINE 6 MG/2 ML INJ IV ONE (12:33)
[2021-09-03] MEDS: VANCOMYCIN 750mg/250ml 250 ML IV SCH ×2 (13:10→23:50)
[2021-09-03 13:35] VITALS: BP 154/68
[2021-09-03] MEDS: METOCLOPRAMIDE HCL 5MG/ml INJ 2ml VIAL IV PRN (14:24)
[2021-09-03 16:53] VITALS: BP 160/79
[2021-09-03] MEDS: ATORVASTATIN 20 MG TAB PO SCH (21:16)
[2021-09-03] MEDS: METOPROLOL TARTRATE 25 MG TAB PO SCH (21:16)
[2021-09-03 22:00] VITALS: BP 122/65
[2021-09-04 05:00] VITALS: BP 126/50
[2021-09-04 06:52] LABS: Basophils # (auto) 0.1 10 ^3/uL (0-0.2); Basophils % (auto) 0.5 % (0.0-2.0); Eosinophils # (auto) 0.2 10 ^3/uL (0-0.8); Eosinophils % (auto) 1.9 % (0.0-7.0); Hematocrit 35.2 % (36.0-46.0); Hemoglobin 11.7 g/dL (12.2-16.2); Lymphocytes # (auto) 0.7 10 ^3/uL (0.4-5.4); Lymphocytes % (auto) 7.8 % (10.0-50.0); Mean Corpuscular Hemoglobin 30.6 pg (28.0-32.0); Mean Corpuscular Hgb Conc. 33.3 g/dL (32.0-36.0); Mean Corpuscular Volume 91.7 fL (80.0-100.0); Monocytes % (auto) 11.4 % (0.0-12.0); Neutrophils # (auto) 7.2 10 ^3/uL (1.6-8.6); Neutrophils % (auto) 78.4 % (37.0-80.0); Red Blood Cells 3.84 10^6/uL (4.0-5.20); Red Cell Distribution Width 14.1 % (11.8-14.3); White Blood Cell 9.2 10^3/uL (4.4-10.8)
[2021-09-04 07:16] LABS: BUN/Creatinine Ratio 17.7; Calcium 7.6 mg/dL (8.5-10.1); Potassium 3.5 mmol/L (3.5-5.1)
[2021-09-04 08:30] VITALS: BP 168/77
[2021-09-04] MEDS: cefTRIAXone 1GM/50ML D5W 50 ML IV SCH (08:34)
[2021-09-04 09:01] VITALS: BP 168/77
[2021-09-04] MEDS: METOPROLOL TARTRATE 25 MG TAB PO SCH ×2 (09:01→21:58)
[2021-09-04] MEDS: FAMOTIDINE 20 MG TAB PO SCH (09:02)
[2021-09-04] MEDS: VENLAFAXINE HCL 37.5mg XR cap PO SCH (09:02)
[2021-09-04] MEDS: VANCOMYCIN 750mg/250ml 250 ML IV SCH (11:26)
[2021-09-04 13:00] VITALS: BP 135/77
[2021-09-04] MEDS: MORPHINE SULFATE INJECTION 2 MG/ML SYRG IV PRN ×2 (13:45→21:59)
[2021-09-04 17:13] VITALS: BP 149/66
[2021-09-04] MEDS: ATORVASTATIN 20 MG TAB PO SCH (21:57)
[2021-09-04 22:00] VITALS: BP 131/75
[2021-09-05] MEDS: VANCOMYCIN 750mg/250ml 250 ML IV SCH ×2 (00:10→11:09)
[2021-09-05 05:29] VITALS: BP 133/52
[2021-09-05 08:30] VITALS: BP 130/66
[2021-09-05] MEDS: cefTRIAXone 1GM/50ML D5W 50 ML IV SCH (08:31)
[2021-09-05 09:25] VITALS: BP 130/66
[2021-09-05] MEDS: METOPROLOL TARTRATE 25 MG TAB PO SCH ×2 (10:12→21:44)
[2021-09-05] MEDS: FAMOTIDINE 20 MG TAB PO SCH (10:12)
[2021-09-05] MEDS: VENLAFAXINE HCL 37.5mg XR cap PO SCH (10:12)
[2021-09-05] MEDS ORDERED: POTASSIUM CHL 20 Meq TABLET PO ONE (10:15)
[2021-09-05] MEDS ORDERED: FUROSEMIDE 20 MG/2 ML VIAL IV ONE (10:15)
[2021-09-05 13:00] VITALS: BP 127/69
[2021-09-05 16:57] VITALS: BP 129/74
[2021-09-05] MEDS: METOCLOPRAMIDE HCL 5MG/ml INJ 2ml VIAL IV PRN (20:22)
[2021-09-05] MEDS: ATORVASTATIN 20 MG TAB PO SCH (21:43)
[2021-09-05] MEDS: MORPHINE SULFATE INJECTION 2 MG/ML SYRG IV PRN (21:58)
[2021-09-05 22:00] VITALS: BP 140/65
[2021-09-06] MEDS: MORPHINE SULFATE INJECTION 2 MG/ML SYRG IV PRN ×2 (02:11→16:02)
[2021-09-06 05:00] VITALS: BP 128/85
[2021-09-06 09:30] VITALS: BP 155/68
[2021-09-06] MEDS ORDERED: POTASSIUM CHL 20 Meq TABLET PO ONE (10:00)
[2021-09-06] MEDS ORDERED: FUROSEMIDE 20 MG/2 ML VIAL IV ONE (10:00)
[2021-09-06] MEDS: cefTRIAXone 1GM/50ML D5W 50 ML IV SCH (10:18)
[2021-09-06] MEDS: FAMOTIDINE 20 MG TAB PO SCH (10:18)
[2021-09-06] MEDS: METOPROLOL TARTRATE 25 MG TAB PO SCH (10:19)
[2021-09-06] MEDS: VENLAFAXINE HCL 37.5mg XR cap PO SCH (10:19)
[2021-09-06] MEDS: HYDROcodone-ACET 5/325MG TAB PO PRN ×2 (10:20→19:35)
[2021-09-06] MEDS: VANCOMYCIN 750mg/250ml 250 ML IV SCH ×2 (12:05)
[2021-09-06 12:52] VITALS: BP 147/69
[2021-09-06 16:32] VITALS: BP 132/86
== END 2021-09-06 20:13 | disposition home or self-care (01) | DRG 720 ==
LOC: EDBD 14:25 → ER 14:25 → TELE 17:33 → TELE-CENTR 22:13
PROVIDERS: ADMIT Hospitalist; ATTEND Internal Medicine
PROC: 05HB33Z Insertion of Infusion Device into Right Basilic Vein, Percutaneous Approach (ICD-10-PCS; principal; 2021-09-02)
PROC: B54MZZA Ultrasonography of Right Upper Extremity Veins, Guidance (ICD-10-PCS; 2021-09-02)
DX: A41.9 Sepsis, unspecified organism (principal); N17.0 Acute kidney failure with tubular necrosis; I21.A1 Myocardial infarction type 2; E44.0 Moderate protein-calorie malnutrition; D69.6 Thrombocytopenia, unspecified; G92.8 Other toxic encephalopathy; E86.1 Hypovolemia; N39.0 Urinary tract infection, site not specified; R55 Syncope and collapse; N18.32 Chronic kidney disease, stage 3b; F32.9 Major depressive disorder, single episode, unspecified; F41.9 Anxiety disorder, unspecified; G62.9 Polyneuropathy, unspecified; G89.4 Chronic pain syndrome; E87.5 Hyperkalemia; Z68.25 Body mass index [BMI] 25.0-25.9, adult; Z20.822 Contact with and (suspected) exposure to COVID-19; E78.5 Hyperlipidemia, unspecified; F01.50 Vascular dementia, unspecified severity, without behavioral disturbance, psychotic disturbance, mood disturbance, and anxiety; I12.9 Hypertensive chronic kidney disease with stage 1 through stage 4 chronic kidney disease, or unspecified chronic kidney disease; M25.552 Pain in left hip; R65.20 Severe sepsis without septic shock; I65.23 Occlusion and stenosis of bilateral carotid arteries; M19.90 Unspecified osteoarthritis, unspecified site; Z74.01 Bed confinement status; Z79.02 Long term (current) use of antithrombotics/antiplatelets; Z79.899 Other long term (current) drug therapy; Z80.9 Family history of malignant neoplasm, unspecified; Z85.038 Personal history of other malignant neoplasm of large intestine; Z86.718 Personal history of other venous thrombosis and embolism; Z90.710 Acquired absence of both cervix and uterus; Z86.73 Personal history of transient ischemic attack (TIA), and cerebral infarction without residual deficits
CPT/HCPCS: 36415; 70450; 71045; 73502; 73700; 80048; 80053; 80061; 80202; 80307; 81001; 82270; 82306; 82962; 83036; 83880; 84100; 84443; 84484; 85025; 85379; 85610; 85730; 87040; 87077; 87086; 87186; 87426; 93005; 93306; 93886; 96360; 96372; 97110; 97163; 97530; G0378; J0153; J0696; J1335; J1815; J3490; J7060